=== PATIENT | female | born 1930 | race African-American/Black ===

== ENCOUNTER → 2016-03-17 | Outpatient (CLI) | payer OTHER ==
[~2016-03-17] MED LIST: AGGRENOX 25 MG1 EACH PO; AMOXICILLIN 50500 MG PO; ASPIR 8181 MG PO; ATORVASTATIN CA40 MG PO; CYMBALTA60 MG PO; JANUVIA100 MG PO; LASIX 20 MG TAB20 MG PO; LEVEMIR SUBQ; LOMOTIL TABLET1 EACH PO; PROBIOTIC1 EAC1 PO
== END ==
LOC: HYPER 07:12
DX: L89.610 Pressure ulcer of right heel, unstageable (principal); E78.5 Hyperlipidemia, unspecified; E11.22 Type 2 diabetes mellitus with diabetic chronic kidney disease; I12.9 Hypertensive chronic kidney disease with stage 1 through stage 4 chronic kidney disease, or unspecified chronic kidney disease; N18.9 Chronic kidney disease, unspecified; E11.21 Type 2 diabetes mellitus with diabetic nephropathy; Z79.84 Long term (current) use of oral hypoglycemic drugs; Z86.73 Personal history of transient ischemic attack (TIA), and cerebral infarction without residual deficits; Z90.710 Acquired absence of both cervix and uterus

== ENCOUNTER 2016-08-04 20:24 | Inpatient (IN) | payer OTHER ==
[~2016-08-04] VITALS: Ht 157.5 cm; Wt 53.2 kg
--- NOTE | ~2016-08-04 | HC ---
[facility] [place] [address] CONSULTATION Name: VICKICARLYN L Room #: 312-P [facility]#: [id number] Admission: 08/04/16 Attend Phys: Luciana Smith Discharge: 08/07/16 Date of : 30 Report #: [id number] THIS REPORT FOR: //name// CC: Luciana Smith Ashvin Wiseman DATE OF SERVICE: 08/05/2016 HISTORY OF PRESENT ILLNESS: This is an 85-year-old female patient who was admitted through the Emergency Department with a chief complaint of weakness. The patient is not able to provide a lot of information due to her level of alertness and ability to communicate. She was reported to have a pressure ulceration on her sacral region as well as an ulceration on her right ankle. I have been asked to see her with regard to wound care. PAST MEDICAL HISTORY: Positive for history of stroke with some residual aphasia. She has history of chronic kidney disease, diabetes mellitus, hypertension, and hypercholesterolemia. ALLERGIES: None. MEDICATIONS: Include aspirin, acidophilus, insulin, lisinopril, cholecalciferol, Tradjenta, Cymbalta, Lipitor, Lasix, and Plavix. FAMILY HISTORY: Positive for history of prostate cancer in her father and a history of tuberculosis in her mother. SOCIAL HISTORY: Negative for alcohol or tobacco use. REVIEW OF SYSTEMS: Negative other than per the history of present illness, significantly limited due to the patient's level of alertness. PHYSICAL EXAMINATION: VITAL SIGNS: Temperature 98.0, pulse , respiratory rate 18, blood pressure /87. GENERAL: This is a somewhat chronically ill-appearing female patient who appears to be well-nourished and in no apparent distress. HEENT: Head normocephalic. NECK: Supple. LUNGS: Diminished. HEART: Regular rhythm. ABDOMEN: Soft and nontender. SKIN AND BACK: Demonstrates what appears to be a small stage 3 sacral pressure ulcer to the left of the midline. There is a relatively clean base with granulation tissue, minimal if any undermining, no tunneling and it is not overtly infected. The area is slightly tender with some induration, but once [facility] [address] [place] [address] CONSULTATION Name: VICKICARLYN L Room #: 312-P [facility] IN [facility].#: [id number] Admission: 08/04/16 Attend Phys: Luciana Smith Discharge: 08/07/16 Date of : 30 Report #: [id number] again does not appear to be clinically infected. Examination of the right lateral ankle demonstrates previous ulceration with some dry skin. This area, however, is epithelialized. CLINICAL IMPRESSION: 1. Stage 3 pressure ulcer to the left sacral region. 2. Traumatic versus pressure ulceration to the right lateral ankle that is currently epithelialized. 3. Urinary tract infection. 4. Acute mental status changes. 5. Diabetes mellitus. 6. Previous history of cerebrovascular accident. RECOMMENDATIONS: At this point in time, the patient will need turning and repositioning every 2 hours to avoid continued pressure over bony prominences and pressure reduction along the sacral ulceration. At this point in time, we will recommend topical morphine, Silvadene compound mixed with a moisture barrier cream to improve adherence. No secondary dressings at this time. We will recommend protective boots while in bed. Continue to monitor for improvement and continue nutritional support. I appreciate being asked to see her in consultation. <ELECTRONICALLY SIGNED> By: Edmond Celis MD 08/07/16 2037 0923 [id number] Edmond Celis MD /nt
--- NOTE | ~2016-08-04 | EKG ---
[address] [place] [address] ELECTROCARDIOGRAM REPORT Name: CARLYN COHEN Room #: 312-P ADM IN M.R.#: [id number] Admission: 08/04/16 Attend Phys: Luciana Smith Discharge: Date of : 30 Report #: [id number] THIS REPORT FOR: //name// [facility] ED Test Date: 2016-08-04 Test Time: 22:20:22 Pat Name: CARLYN COHEN Department: Room: [facility] Gender: F Basket Weaver: ADONAY : 1930 Requested By: Sy Mcfadden Order Number: [id number] MD: Vern Spencer Measurements Intervals [place] Rate: 70 P: -72 MA: 170 QRS: -15 QRSD: 135 T: 164 QT: 448 QTc: 484 Interpretive Statements Sinus or ectopic atrial rhythm Left bundle branch block Baseline wander in lead(s) V4,V6 Compared to ECG 12/04/2014 20:15:33 Ectopic atrial rhythm now present Electronically Signed On 08-05-2016 8:54:07 CDT by Vern Spencer [email or web address] <ELECTRONICALLY SIGNED> By: Vern Spencer MD, FACC 08/05/16 0854 2220 Vern Spencer MD, [facility] /EPI
[2016-08-04 20:26] VITALS: BP 113/66
[2016-08-04] MEDS ORDERED: PLAVIX 75 MG TA75 M1 PO (20:47)
[2016-08-04 21:17] LABS: URINE BILIRUBIN NEGATIVE (Negative); URINE BLOOD 3+ (Negative); URINE COLOR YELLOW; URINE GLUCOSE-RANDOM* NEGATIVE (Negative); URINE KETONES NEGATIVE (Negative); URINE NITRITE NEGATIVE (Negative); URINE PROTEIN (DIPSTICK) 2+ (Negative); URINE UROBILINOGEN 0.2 E.U./dl (0.2-1.0)
[2016-08-04 21:27] LABS: SQUAMOUS 0-3 Few /LPF (0-3)
[2016-08-04 21:28] LABS: URINE RBC >20 Many /HPF (0-2); URINE WBC 6-15 Few /HPF (0-5)
[2016-08-04 21:29] LABS: BACTERIA >30 Many /HPF (None Seen); CASTS None Seen /LPF (None Seen); CRYSTALS None Seen /LPF (None Seen)
[2016-08-04 22:26] LABS: MCH 30.4 pg (26.0-34.0); MCHC 31.6 g/dL (28.0-37.0); MCV 96.1 fL (80.0-100.0); PLATELET COUNT 261 thou/uL (150-400); RBC 3.96 mil/uL (4.20-5.00); RDW 16.1 % (10.5-14.5)
[2016-08-04 22:31] LABS: MANUAL DIFF YES
[2016-08-04 22:38] LABS: CALCIUM 9.7 mg/dL (8.5-10.1); CREATININE 2.2 mg/dL (0.6-1.0); POTASSIUM 3.2 mmol/L (3.5-5.1)
[2016-08-04 22:42] LABS: TROPONIN-I 0.05 ng/mL (<0.04-0.07)
[2016-08-04 23:06] LABS: ABSOLUTE NEUTROPHILS 8.3 thou/uL (1.4-8.2); TOTAL CELL COUNT 100
[2016-08-04 23:07] LABS: ANISOCYTOSIS 1+
[2016-08-05 01:25] VITALS: BP 174/77
[2016-08-05] MEDS ORDERED: LISINOPRIL20 MG PO (03:43)
[2016-08-05] MEDS ORDERED: VITAMIN D1000 UNI1 PO (03:43)
[2016-08-05] MEDS ORDERED: TRADJENTA5 MG (03:44)
[2016-08-05 05:10] VITALS: BP 149/94
[2016-08-05 06:09] LABS: CALCIUM 9.3 mg/dL (8.5-10.1); POTASSIUM 3.5 mmol/L (3.5-5.1)
[2016-08-05 07:22] VITALS: BP 191/87
[2016-08-05 15:50] VITALS: BP 152/69
[2016-08-05 19:56] VITALS: BP 141/61
[2016-08-06 04:18] LABS: ALBUMIN 2.2 g/dL (3.4-5.0); CALCIUM 8.5 mg/dL (8.5-10.1); CREATININE 1.8 mg/dL (0.6-1.0); PHOSPHORUS 4.1 mg/dL (2.5-4.9)
[2016-08-06 04:22] VITALS: BP 145/66
[2016-08-06 04:29] LABS: POTASSIUM 2.5 mmol/L (3.5-5.1)
[2016-08-06 07:50] VITALS: BP 158/79
[2016-08-06 15:45] VITALS: BP 160/73
[2016-08-06 19:54] VITALS: BP 157/63
[2016-08-07 03:54] VITALS: BP 144/68
[2016-08-07 06:37] LABS: CALCIUM 8.5 mg/dL (8.5-10.1); CREATININE 1.4 mg/dL (0.6-1.0); POTASSIUM 3.6 mmol/L (3.5-5.1)
[2016-08-07 07:16] VITALS: BP 151/65
[2016-08-07] MEDS ORDERED: CEFDINIR300 MG PO (10:31)
[2016-08-07 16:29] VITALS: BP 158/57
== END 2016-08-07 16:59 | DRG 871 ==
LOC: ER 20:24 → 3N 22:58 → EROBS 22:58 → 3N 08-05 01:00
PROVIDERS: Hospitalist; Nurse Practitioner; Nurse Practitioner Acute Care
DX: A41.9 Sepsis, unspecified organism (principal); G92 Toxic encephalopathy; E43 Unspecified severe protein-calorie malnutrition; L89.153 Pressure ulcer of sacral region, stage 3; N17.9 Acute kidney failure, unspecified; N39.0 Urinary tract infection, site not specified; E87.0 Hyperosmolality and hypernatremia; E78.00 Pure hypercholesterolemia, unspecified; E87.6 Hypokalemia; E11.51 Type 2 diabetes mellitus with diabetic peripheral angiopathy without gangrene; E11.22 Type 2 diabetes mellitus with diabetic chronic kidney disease; N18.3 Chronic kidney disease, stage 3 (moderate); I12.9 Hypertensive chronic kidney disease with stage 1 through stage 4 chronic kidney disease, or unspecified chronic kidney disease; I69.920 Aphasia following unspecified cerebrovascular disease; Z90.49 Acquired absence of other specified parts of digestive tract; Z68.21 Body mass index [BMI] 21.0-21.9, adult; Z79.899 Other long term (current) drug therapy; Z79.82 Long term (current) use of aspirin; Z80.42 Family history of malignant neoplasm of prostate
CPT/HCPCS: 10795

== ENCOUNTER → 2016-09-22 | Outpatient (CLI) | payer OTHER ==
[~2016-09-22] MED LIST changes: +CEFDINIR300 MG PO; +LISINOPRIL20 MG PO; +PLAVIX 75 MG TA75 M1 PO; +TRADJENTA5 MG; +VITAMIN D1000 UNI1 PO
== END ==
LOC: HYPER 08-19 09:58
DX: L89.620 Pressure ulcer of left heel, unstageable (principal); E78.5 Hyperlipidemia, unspecified; E11.22 Type 2 diabetes mellitus with diabetic chronic kidney disease; I12.9 Hypertensive chronic kidney disease with stage 1 through stage 4 chronic kidney disease, or unspecified chronic kidney disease; N18.9 Chronic kidney disease, unspecified; Z90.710 Acquired absence of both cervix and uterus; Z79.84 Long term (current) use of oral hypoglycemic drugs; Z86.73 Personal history of transient ischemic attack (TIA), and cerebral infarction without residual deficits

== ENCOUNTER → 2016-09-29 | Outpatient (CLI) | payer OTHER | LOC: HYPER 07:00 | DX: E11.621 Type 2 diabetes mellitus with foot ulcer (principal); L97.421 Non-pressure chronic ulcer of left heel and midfoot limited to breakdown of skin; L89.620 Pressure ulcer of left heel, unstageable; S90.521D Blister (nonthermal), right ankle, subsequent encounter; E11.21 Type 2 diabetes mellitus with diabetic nephropathy; G81.91 Hemiplegia, unspecified affecting right dominant side; E78.5 Hyperlipidemia, unspecified; E11.22 Type 2 diabetes mellitus with diabetic chronic kidney disease; I12.9 Hypertensive chronic kidney disease with stage 1 through stage 4 chronic kidney disease, or unspecified chronic kidney disease; N18.9 Chronic kidney disease, unspecified; Z90.710 Acquired absence of both cervix and uterus; Z86.73 Personal history of transient ischemic attack (TIA), and cerebral infarction without residual deficits; Z79.84 Long term (current) use of oral hypoglycemic drugs; X58.XXXD Exposure to other specified factors, subsequent encounter ==

== ENCOUNTER → 2016-10-07 | Outpatient (CLI) | payer OTHER | LOC: HYPER 07:01 | DX: E11.621 Type 2 diabetes mellitus with foot ulcer (principal); L97.421 Non-pressure chronic ulcer of left heel and midfoot limited to breakdown of skin; L89.620 Pressure ulcer of left heel, unstageable; E11.21 Type 2 diabetes mellitus with diabetic nephropathy; I10 Essential (primary) hypertension; E78.5 Hyperlipidemia, unspecified; E11.22 Type 2 diabetes mellitus with diabetic chronic kidney disease; I12.9 Hypertensive chronic kidney disease with stage 1 through stage 4 chronic kidney disease, or unspecified chronic kidney disease; N18.9 Chronic kidney disease, unspecified; Z86.73 Personal history of transient ischemic attack (TIA), and cerebral infarction without residual deficits; Z79.84 Long term (current) use of oral hypoglycemic drugs; Z90.710 Acquired absence of both cervix and uterus ==

== ENCOUNTER 2016-11-28 22:42 | Inpatient (IN) | payer OTHER ==
[~2016-11-28] VITALS: Ht 157.5 cm; Wt 58.5 kg
[2016-11-28 22:43] VITALS: BP 138/63
[2016-11-28 23:28] LABS: URINE BILIRUBIN NEGATIVE (Negative); URINE BLOOD NEGATIVE (Negative); URINE COLOR YELLOW; URINE GLUCOSE-RANDOM* TRACE (Negative); URINE KETONES NEGATIVE (Negative); URINE NITRITE NEGATIVE (Negative); URINE PROTEIN (DIPSTICK) NEGATIVE (Negative); URINE SPECIFIC GRAVITY 1.015 (1.003-1.035); URINE UROBILINOGEN 0.2 E.U./dl (0.2-1.0)
[2016-11-29] MEDS ORDERED: NORVASC5 MG PO (00:43)
[2016-11-29] MEDS ORDERED: SENNA8.6 MG PO (00:44)
[2016-11-29] MEDS ORDERED: TYLENOL325 MG PO (00:44)
[2016-11-29 00:46] LABS: HEMATOCRIT 34.4 % (37.0-47.0); HEMOGLOBIN 11.3 gm/dL (12.0-15.0); MANUAL DIFF YES; MCH 29.9 pg (26.0-34.0); MCV 90.7 fL (80.0-100.0); PLATELET COUNT 321 thou/uL (150-400); RBC 3.79 mil/uL (4.20-5.00); WBC 7.9 thou/uL (4.0-11.0)
[2016-11-29 00:49] LABS: ANION GAP 6 mmol/L (7-16); BUN 18 mg/dL (7-18); CALCIUM 9.3 mg/dL (8.5-10.1); CHLORIDE 105 mmol/L (98-107); CO2 32 mmol/L (21-32); CREATININE 1.8 mg/dL (0.6-1.0); GLUCOSE 183 mg/dL (74-106); POTASSIUM 4.1 mmol/L (3.5-5.1); SODIUM 143 mmol/L (136-145)
[2016-11-29 00:57] LABS: ALKALINE PHOSPHATASE 158 U/L (46-116); SGOT 26 U/L (15-37); SGPT 31 U/L (30-65); TOTAL BILIRUBIN 0.6 mg/dL (<0.1-1.0); TOTAL PROTEIN 7.3 g/dL (6.4-8.2); TROPONIN-I < 0.04 ng/mL (<0.04-0.07)
[2016-11-29 01:29] LABS: ABSOLUTE NEUTROPHILS 4.3 thou/uL (1.4-8.2); ANISOCYTOSIS SLIGHT; TOTAL CELL COUNT 100
[2016-11-29 01:58] VITALS: BP 134/59
[2016-11-29 02:30] VITALS: BP 142/55
[2016-11-29 08:09] VITALS: BP 132/63
[2016-11-29 15:26] VITALS: BP 134/67
[2016-11-29 20:05] VITALS: BP 142/54
[2016-11-30 04:00] VITALS: BP 151/57
[2016-11-30 04:46] VITALS: BP 152/68
[2016-11-30 06:05] LABS: HEMATOCRIT 29.3 % (37.0-47.0); HEMOGLOBIN 9.9 gm/dL (12.0-15.0); MCH 30.8 pg (26.0-34.0); MCHC 33.7 g/dL (28.0-37.0); MCV 91.3 fL (80.0-100.0); RBC 3.21 mil/uL (4.20-5.00); RDW 15.6 % (10.5-14.5); WBC 9.5 thou/uL (4.0-11.0)
[2016-11-30 06:17] LABS: ALBUMIN 2.5 g/dL (3.4-5.0); CALCIUM 8.4 mg/dL (8.5-10.1); CREATININE 1.3 mg/dL (0.6-1.0); PHOSPHORUS 3.1 mg/dL (2.5-4.9); POTASSIUM 3.5 mmol/L (3.5-5.1)
[2016-11-30 07:30] VITALS: BP 152/71
== END 2016-11-30 17:51 | DRG 682 ==
LOC: ER 22:42 → EROBS 11-29 01:19 → 4S 11-29 01:59
PROVIDERS: Hospitalist; Nurse Practitioner Family
DX: N17.9 Acute kidney failure, unspecified (principal); G93.40 Encephalopathy, unspecified; N39.0 Urinary tract infection, site not specified; E11.22 Type 2 diabetes mellitus with diabetic chronic kidney disease; N18.3 Chronic kidney disease, stage 3 (moderate); I12.9 Hypertensive chronic kidney disease with stage 1 through stage 4 chronic kidney disease, or unspecified chronic kidney disease; E11.51 Type 2 diabetes mellitus with diabetic peripheral angiopathy without gangrene; F32.9 Major depressive disorder, single episode, unspecified; E78.5 Hyperlipidemia, unspecified; Z90.49 Acquired absence of other specified parts of digestive tract; Z90.710 Acquired absence of both cervix and uterus; Z79.82 Long term (current) use of aspirin; Z79.899 Other long term (current) drug therapy; Z80.42 Family history of malignant neoplasm of prostate; I69.320 Aphasia following cerebral infarction; Z28.21 Immunization not carried out because of patient refusal
CPT/HCPCS: 10195

== ENCOUNTER 2017-01-18 11:37 | Emergency (ER) | payer OTHER ==
[~2017-01-18] VITALS: Ht 165.1 cm; Wt 66.2 kg
[~2017-01-18 11:37] MED LIST changes: +NORVASC5 MG PO; +SENNA8.6 MG PO; +TYLENOL325 MG PO
== END 2017-01-18 14:31 | disposition home or self-care (01) ==
LOC: ER 11:37
DX: K56.41 Fecal impaction (principal); K59.00 Constipation, unspecified; F32.9 Major depressive disorder, single episode, unspecified; E11.9 Type 2 diabetes mellitus without complications; I12.9 Hypertensive chronic kidney disease with stage 1 through stage 4 chronic kidney disease, or unspecified chronic kidney disease; N18.3 Chronic kidney disease, stage 3 (moderate); Z90.49 Acquired absence of other specified parts of digestive tract; I73.9 Peripheral vascular disease, unspecified

== ENCOUNTER 2017-04-05 14:43 | Emergency (ER) | payer OTHER ==
[~2017-04-05] VITALS: Ht 160 cm; Wt 68.0 kg
--- NOTE | ~2017-04-05 | EKG ---
[place] [address] [facility] [place] [address] ELECTROCARDIOGRAM REPORT Name: VICKICARLYN Room #: [facility]#: [id number] Admission: 04/05/17 Attend Phys: Discharge: 04/05/17 Date of : 30 Report #: [id number] THIS REPORT FOR: //name// 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: ERIKA : 1930 Requested By: Tammy Fajardo Order Number: [id number] MD: Vern Spencer Measurements Intervals [place] Rate: 70 P: -18 [place]: 241 QRS: -27 QRSD: 132 T: 107 QT: 471 QTc: 509 Interpretive Statements Sinus rhythm Prolonged [place] interval Left bundle branch block Compared to ECG 08/04/2016 22:20:22 No significant change was found Electronically Signed On 04-06-2017 8:21:39 COMPUTER APPLICATION DEVELOPER by Vern Spencer [email or web address] <ELECTRONICALLY SIGNED> By: Vern Spencer MD, [facility] 04/06/17 08 11 11 Vern Spencer MD, [facility] /EPI
[2017-04-05 15:24] LABS: URINE BILIRUBIN NEGATIVE (Negative); URINE BLOOD 1+ (Negative); URINE COLOR YELLOW; URINE GLUCOSE-RANDOM* NEGATIVE (Negative); URINE KETONES NEGATIVE (Negative); URINE LEUKOCYTES 3+ (Negative); URINE NITRITE POSITIVE (Negative); URINE PROTEIN (DIPSTICK) NEGATIVE (Negative); URINE UROBILINOGEN 0.2 E.U./dl (0.2-1.0)
[2017-04-05 15:34] LABS: URINE CLARITY HAZY
[2017-04-05 15:35] LABS: BACTERIA >30 Many /HPF (None Seen); CASTS None Seen /LPF (None Seen); CRYSTALS None Seen /LPF (None Seen); SQUAMOUS 0-3 Few /LPF (0-3); URINE RBC 3-10 Few /HPF (0-2); URINE WBC >25 Many /HPF (0-5)
[2017-04-05 15:56] LABS: ABSOLUTE NEUTROPHILS 4.8 thou/uL (1.4-8.2); BASOPHILS 0.3 % (0.0-2.0); EOSINOPHILS 1.8 % (0.0-3.0); HEMATOCRIT 36.9 % (37.0-47.0); HEMOGLOBIN 11.8 gm/dL (12.0-15.0); LYMPHOCYTES 31.3 % (24.0-44.0); MCH 30.1 pg (26.0-34.0); MCHC 31.9 g/dL (28.0-37.0); MCV 94.3 fL (80.0-100.0); MONOCYTES 11.6 % (1.0-8.0); PLATELET COUNT 218 thou/uL (150-400); RBC 3.92 mil/uL (4.20-5.00); RDW 15.5 % (10.5-14.5); WBC 8.8 thou/uL (4.0-11.0)
[2017-04-05 16:03] LABS: CALCIUM 9.5 mg/dL (8.5-10.1); CREATININE 1.7 mg/dL (0.6-1.0)
[2017-04-05 16:09] LABS: TOTAL BILIRUBIN 0.3 mg/dL (<0.1-1.0); TOTAL PROTEIN 7.2 g/dL (6.4-8.2)
[2017-04-05] MEDS ORDERED: KEFLEX500 M1 PO (16:34)
[2017-04-05 17:17] VITALS: BP 147/57
== END 2017-04-05 17:26 | disposition home or self-care (01) ==
LOC: ER 14:43
PROVIDERS: Physician Assistant
DX: N39.0 Urinary tract infection, site not specified (principal); F32.9 Major depressive disorder, single episode, unspecified; I12.9 Hypertensive chronic kidney disease with stage 1 through stage 4 chronic kidney disease, or unspecified chronic kidney disease; E11.22 Type 2 diabetes mellitus with diabetic chronic kidney disease; N18.3 Chronic kidney disease, stage 3 (moderate); Z86.73 Personal history of transient ischemic attack (TIA), and cerebral infarction without residual deficits; Z90.49 Acquired absence of other specified parts of digestive tract

== ENCOUNTER → 2017-06-17 | Outpatient (CLI) | payer OTHER ==
[~2017-06-17] MED LIST changes: +KEFLEX500 M1 PO
== END ==
LOC: RAD 06:30 → SPEECH 06:30 → RAD 14:54
DX: R13.12 Dysphagia, oropharyngeal phase (principal); I10 Essential (primary) hypertension; E11.8 Type 2 diabetes mellitus with unspecified complications; I63.9 Cerebral infarction, unspecified; I73.9 Peripheral vascular disease, unspecified

== ENCOUNTER 2018-02-10 01:31 | Inpatient (IN) | payer OTHER ==
[~2018-02-10] VITALS: Ht 160 cm; Wt 61.8 kg
--- NOTE | ~2018-02-10 | D ---
[facility] [place] [address] DISCHARGE SUMMARY Name: CARLYN COHEN Lesli Room #: 205-P [facility] IN .R.#: [id number] Admission: 02/10/18 Attend Phys: Pedro El MD Discharge: 03/12/18 Date of : 30 Report #: [id number] THIS REPORT FOR: //name// CC: Horacio Keo [facility] Pedro Vidal MD DATE OF SERVICE: 03/12/2018 SUMMARY OF HISTORY AND PHYSICAL: The patient was brought to the Emergency Room for mental status changes, where she was found to be markedly dehydrated because of poor oral intake, but mostly because of profound diarrhea that persisted after tremendous amount of laxatives were used because of a fecal impaction. Her dehydration was severe enough to be classified as "acute renal failure with acute tubular necrosis". SUMMARY OF HOSPITAL COURSE: She was admitted and seen by the sales stock associate. Her creatinine was 7.8 on admission compared with a baseline this previous year of 1.7. The sales stock associate adjusted her IV fluids and followed her throughout the one-month hospital stay. Tremendous diarrhea at the beginning of her hospital stay complicated her electrolyte management because of potassium losses. At discharge, her creatinine was at baseline at 1.5. 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 She was seen by the Speech Therapy Department, who felt that she required honey-thickened liquids. She had not been drinking or eating well prior to coming to the hospital and struggled with honey-thickened liquids. She then refused to drink them. Finally, a PEG tube was placed in order to provide adequate nutrition. Her diarrhea persisted, having mucousy stools. C. diff was negative and extended flexible sigmoidoscopy with biopsies was performed because of the diarrhea and because of a foreign body located in the rectum that was revealed by CT scanning. All the mucosa from the distal ascending colon to the rectum was normal. The foreign body seen on the CT scan was not visualized during the flexible sigmoidoscopy. The study was essentially normal. The biopsies showed melanosis coli and no other abnormalities. Microscopic colitis was absent. The diarrhea waxed and waned, but was minimal at discharge. The forgien body was felt to be the retained tip of a fecal management system. It was removed and not present on follow up CT. On 02/25/2018, a PEG tube was placed. Mild patchy duodenitis and minimal mild erythema of the antrum of the stomach were noted. The esophagus appeared normal and a PEG tube was placed without complications. [address] [address] DISCHARGE SUMMARY Name: VICKICARLYN Room #: 205-P [facility] IN ..#: [id number] Admission: 02/10/18 Attend Phys: Pedro El MD Discharge: 03/12/18 Date of : 30 Report #: [id number] The PEG tube feeding seem to proceed well, with an absence of gastric retention, but the diarrhea resumed. She was found to have a sigmoid volvulus and on 03/02/2018, Dr. Blanchard decompressed the volvulus with flexible sigmoidoscopy. On 02/10/2018, a laparoscopic sigmoid colectomy stapled and end-to-end with the 29 mm EEA anastomosis was performed by Dr. Vidal on 03/05/2018. Postoperatively, she appeared obtunded with agonal rhythms, but rapidly recovered in the Intensive Care Unit and was transferred to the floor the following day. After that time, she resumed PEG tube feedings without problems. Prior to the placement of her PEG tube, she had a brief episode of atrial fibrillation. Cardiology consultation noted that she had returned spontaneously to normal sinus rhythm, and recommended against long-term anticoagulation. She did have toxic encephalopathy, in that she was more confused on admission. After several days of treatment, she was able to answer questions appropriately with nodding her head up and down for yes and turning her head right to left for no answers. Admitting albumin qualified for severe malnutrition. Hemoglobin was 10.4 on admission, and dropped to 8.6 with hydration the next day. Aaron was 7.2. She was given 1 unit of PRBSs in the kadie- sigmoidectomy period on 03-04-2018. She did receive a full course replacement iron with Venofer infusion. She was also given erythropoietin injections for anemia of chronic kidney disease. On 02/24/2018, an echocardiogram showed mild concentric left ventricular hypertrophy with an ejection fraction of 55% with mild diastolic dysfunction. There was trace mitral regurgitation, but no stenosis. Throughout the hospital stay, the patient was carefully turned every 2 hours. At the time of discharge, there were no decubitus skin injuries present in the heels, legs, back or other areas. DISCHARGE DIAGNOSES: 1. Severe dehydration from chronic diarrhea and very poor oral intake, replaced over one-month period of time with IV fluids and PEG tube feeding. 2. Acute renal failure with acute tubular necrosis, resolved. 3. Chronic kidney disease. 4. Iron-deficiency anemia. 5. Anemia of chronic kidney disease. 6. Oropharyngeal dysphagia together with her brain injury from her stroke, required placement of a PEG tube, which was well tolerated. 7. Osteoarthritis of the hands. [facility] [address] [place] [address] DISCHARGE SUMMARY Name: CARLYN COHEN Room #: 205-P [facility] IN [facility]#: [id number] Admission: 02/10/18 Attend Phys: Pedro El MD Discharge: 03/12/18 Date of : 30 Report #: [id number] 8. 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 9. Peripheral vascular disease with 2 stents in the left leg arterial circulation. 10. Mild chronic respiratory congestion. 11. Mild patchy duodenitis - see EGD-PEG report reviewed above. PLAN: The patient is being transferred to [facility] to remain of IV Zosyn and a Isabel catheter. Fentanyl IV for pain control. Surgical followup with Dr. Vidal in 2 weeks. Osmolite 1.5 at 45 mL an hour. D-5-W at 100 mL an hour to be converted into water flushes once arrived at [facility]. Keep the head of the bed elevated to reduce reflux and aspiration. Physical therapy to work towards pivot for transferring. IV iron was completely replaced while in the hospital. She may need resumption of her high blood pressure medications. Once well healed from her surgery, her aspirin and clopidogrel to treat the 2 stents in her left leg arteries could be restarted if appropriate. Consideration for PPI if constant tube feediing altered. OTHER DISCHARGE ORDERS: Lovenox 30 mg subcutaneous at bedtime daily. Procrit 10,000 units every Thursday at 09:00 a.m. Fentanyl 50 mcg IV push every 2 hours as needed for pain. Sliding scale insulin. Piperacillin-tazobactam 3.375 grams IV every 12 hours. Probiotic daily. D5 at 100 mL an hour. Atorvastatin 40 mg daily. Acetaminophen p.r.n. She is no longer taking duloxetine 60 mg daily, Lasix 20 mg daily, Levemir at bedtime, lisinopril 20 mg daily, Tradjenta 5 mg daily, amlodipine 5 mg daily, senna or potassium chloride. By: [id number] [id number] Adams Harmon MD /nt
[2018-02-10 01:32] VITALS: BP 110/48
[2018-02-10 02:08] LABS: HEMATOCRIT 38.5 % (37.0-47.0); HEMOGLOBIN 12.4 gm/dL (12.0-15.0); MCHC 32.1 g/dL (28.0-37.0); MCV 93.5 fL (80.0-100.0); PLATELET COUNT 210 thou/uL (150-400); RBC 4.12 mil/uL (4.20-5.00); RDW 16.3 % (10.5-14.5); WBC 10.1 thou/uL (4.0-11.0)
[2018-02-10 02:14] LABS: CALCIUM 9.4 mg/dL (8.5-10.1); CREATININE 7.8 mg/dL (0.6-1.0)
[2018-02-10 02:19] LABS: POTASSIUM 2.6 mmol/L (3.5-5.1)
[2018-02-10 02:20] LABS: ALBUMIN 2.5 g/dL (3.4-5.0); TOTAL BILIRUBIN 0.8 mg/dL (<0.1-1.0); TOTAL PROTEIN 6.9 g/dL (6.4-8.2)
[2018-02-10 02:21] LABS: URINE BILIRUBIN NEGATIVE (Negative); URINE BLOOD TRACE (Negative); URINE CLARITY CLOUDY; URINE COLOR YELLOW; URINE GLUCOSE-RANDOM* NEGATIVE (Negative); URINE KETONES NEGATIVE (Negative); URINE LEUKOCYTES-REFLEX 3+ (Negative); URINE NITRITE-REFLEX NEGATIVE (Negative); URINE PROTEIN (DIPSTICK) NEGATIVE (Negative); URINE SPECIFIC GRAVITY >= 1.030 (1.005-1.035); URINE UROBILINOGEN 0.2 E.U./dl (0.2-1.0)
[2018-02-10 02:25] LABS: ABSOLUTE NEUTROPHILS 7.6 thou/uL (1.4-8.2); BASOPHILS 0.2 % (0.0-2.0); EOSINOPHILS 0.4 % (0.0-3.0); LYMPHOCYTES 14.2 % (24.0-44.0); MONOCYTES 11.3 % (1.0-8.0); POLYS 73.9 % (36.0-66.0)
[2018-02-10 02:30] LABS: BACTERIA-REFLEX >30 Many /HPF (None Seen); CASTS None Seen /LPF (None Seen); MUCUS 4-6 Moderate strn/LPF (None Seen); SQUAMOUS 0-3 Few /LPF (0-3); TRANSITIONAL EPITHEL CELL 0-3 Few /LPF (None Seen); URINE RBC 3-10 Few /HPF (0-2); URINE WBC-REFLEX >25 Many /HPF (0-5)
[2018-02-10 02:31] LABS: AMORPHOUS URATES Few /LPF (None Seen); WBC CLUMPS Few (None Seen)
[2018-02-10 02:35] LABS: TROPONIN-I 0.24 ng/mL (<0.06)
[2018-02-10 02:48] LABS: ANISOCYTOSIS 1+; POLYCHROMASIA OCCASIONAL
[2018-02-10 02:49] LABS: BURR CELLS FEW
[2018-02-10 02:50] LABS: LARGE PLATELETS FEW
[2018-02-10 06:37] VITALS: BP 119/36
[2018-02-10 06:56] VITALS: BP 102/53
--- NOTE | 2018-02-10 08:21 | EKG ---
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 President Of Procurement: Trino ROSE : 1930 Requested By: Irving Calvert Order Number: [id number] MD: Ruel Webb Measurements Intervals [place] Rate: 72 P: DC: QRS: -12 QRSD: 149 T: 168 QT: 458 QTc: 502 Interpretive Statements Atrial fibrillation Left bundle branch block Compared to ECG 04/05/2017 15:12:15 Sinus rhythm no longer present First degree AV block no longer present Electronically Signed On 02-10-2018 8:21:07 BANANA LOADER by Ruel Webb [email or web address] <ELECTRONICALLY SIGNED> By: Ruel Webb MD 02/10/18 0821 0416 0416 Ruel Webb MD /CHELSEY
[2018-02-10] MEDS ORDERED: POTASSIUM20 PO (09:19)
[2018-02-10 10:12] LABS: ALBUMIN 2.3 g/dL (3.4-5.0); CREATININE 7.5 mg/dL (0.6-1.0); PHOSPHORUS 4.9 mg/dL (2.5-4.9); POTASSIUM 3.2 mmol/L (3.5-5.1)
--- NOTE | 2018-02-10 11:21 | HC ---
[facility] [address] [place] [address] CONSULTATION Name: CARLYN COHEN Room #: 359-P ADM IN ..#: [id number] Admission: 02/10/18 Attend Phys: Pedro El MD Discharge: Date of : 30 Report #: [id number] THIS REPORT FOR: //name// CC: Horacio Crowley Pedro El DATE OF SERVICE: 02/10/2018 ATTENDING PHYSICIAN: Pedro El MD REASON FOR CONSULTATION: Acute kidney injury. HISTORY OF PRESENT ILLNESS: This 87-year-old patient from the [facility] care facility has suffered for many years status post cerebrovascular accident with debility and weakness. She is wheelchair bound and has been pretty much aphasic. Recently, she has developed increased stools partly due to cathartics and has become poorly responsive with poor p.o. intake for several days. Laboratory data showed a creatinine of greater than 7 with abnormal electrolytes and she is admitted. PAST MEDICAL HISTORY: She had a stroke 15 years ago. She has had peripheral arterial disease with some stents to the vasculature of the left lower extremity. She has had previous left heel wound, previous hysterectomy, appendectomy, history of hypertension and diabetes mellitus. MEDICATIONS: List at the time of admission includes potassium, lisinopril 20 mg daily, furosemide 20 mg daily, insulin, Tradjenta 5 mg daily, Cymbalta 60 mg daily, Plavix 75 mg daily, atorvastatin 40 mg daily, aspirin 81 mg daily, amlodipine 5 mg daily. FAMILY HISTORY: Positive for prostate cancer in the father. No renal disease. SOCIAL HISTORY: At the extended care facility. No substantial cigarettes or alcohol. PHYSICAL EXAMINATION: GENERAL: This is a somewhat chronically ill-appearing patient who is able to squeeze my hands to command. SKIN: Otherwise, unremarkable. SKELETAL: Shows her to be well developed, well nourished. No wounds noted. HEENT: Extraocular movements are full. Vision appears to be intact. Hearing appears to be intact. Mucous membranes are dry. NECK: Veins are flat. CHEST: Clear to auscultation anterior in the supine position. HEART: Regular but distant. ABDOMEN: Slightly distended, soft, nontender. [facility] [address] [place] [address] CONSULTATION Name: CARLYN COHEN Room #: 359-P [facility] IN [facility]#: [id number] Admission: 02/10/18 Attend Phys: Pedro El MD Discharge: Date of : 30 Report #: [id number] EXTREMITIES: Show no edema. Peripheral pulses diminished and the feet are slightly cool. LABORATORY DATA: The creatinine is 7.8. Urinalysis is very concentrated and there is leukocyturia and bacteriuria suggesting urinary tract infection. Potassium is 2.6, sodium is 157, glucose 122. White count is 10.1, platelets 210. ASSESSMENT AND PLAN: Acute kidney injury. Volume depletion appears to be at work here. She is on multiple antihypertensives as well as diuretics. These will be held. Fluid, salt and potassium will need to be replenished. Isabel catheter placed. We will check urine studies. We will likely hold off for the time being on renal sonogram, but we may need to do that as well, and otherwise give her lots of fluids and see how she does. 1. Status post cerebrovascular accident. 2. History of hypertension. 3. Diabetes mellitus. 4. Peripheral arterial disease, status post stenting, left lower extremity. <ELECTRONICALLY SIGNED> By: Horacio Crowley MD 02/10/18 1121 1000 1045 Horacio Crowley MD /nt
[2018-02-10 11:25] VITALS: BP 126/46
--- NOTE | 2018-02-10 13:50 | NUR ---
ASSESSMENT: CM REVIEWED CHART AND MET WITH PATIENT AT THE BEDSIDE. PT IS A LTC RESIDENT AT [facility] WHO WAS ADMITTED DUE TO ABNORMAL LABS. PT USES A WALKER/WHEELCHAIR. CM CONTACTED LIASON AT [facility] TO UPDATE WELL FAXED OVER CLINICAL. CM ALSO RECHED OUT TO PATIENTS DAUGHTER MACY TO UPDATE. PLANS ARE FOR PATIENT TO RETURN BACK TO [facility] ONCE SHE IS MEDICALLY STABLE. CM WILL CONTINUE TO FOLLOW TO ASSIST NEEDED.
--- NOTE | 2018-02-10 14:23 | NUR ---
ASSUMED PATIENT CARE FROM ED. A&OX1. PATIENT ABLE TO SHAKE HEAD YES OR NO FOR SOME QUESTIONS. ALL EXTREMITIES WEAK, LEFT MORE THAN RIGHT. HX OF CVA. LIVES AT [facility]. DAUGHTER IN ROOM IN THE MORNING. DAUGHTER TO BRING DPOA PAPERWORK TOMORROW. BLOOD SUGAR LOW IN THE EARLY AFTERNOON, TREATED. PATIENT HAS HAD MULTIPLE CRITICAL LABS TODAY. DR. NEWBERRY AND LORAINE NOTIFIED. RENAL HANDLING IV FLUIDS. LABS TO BE REDRAWN IN THE MORNING.
[2018-02-10 16:51] VITALS: BP 101/40
[2018-02-10 17:53] LABS: URINE CREATININE-RANDOM* 138.2 mg/dL
[2018-02-10 19:45] VITALS: BP 111/43
[2018-02-11 00:22] VITALS: BP 114/51
[2018-02-11 05:56] LABS: MCH 29.8 pg (26.0-34.0); MCHC 31.4 g/dL (28.0-37.0); MCV 94.7 fL (80.0-100.0); RBC 3.48 mil/uL (4.20-5.00); RDW 17.2 % (10.5-14.5); WBC 8.7 thou/uL (4.0-11.0)
[2018-02-11 05:59] LABS: HEMOGLOBIN 10.4 gm/dL (12.0-15.0)
[2018-02-11 06:54] LABS: ALBUMIN 2.1 g/dL (3.4-5.0); CALCIUM 7.8 mg/dL (8.5-10.1); CREATININE 7.3 mg/dL (0.6-1.0); PHOSPHORUS 4.2 mg/dL (2.5-4.9)
[2018-02-11 06:58] LABS: POTASSIUM 2.5 mmol/L (3.5-5.1)
[2018-02-11 07:00] VITALS: BP 127/44
--- NOTE | 2018-02-11 07:53 | NUR ---
SLEPT MOST OF SHIFT. TURNED FOR COMFORT AND SKIN CARE. SPOKE WITH DR GANT LAST NOC AND D10W STARTED FOR BLOOD SUGARS. WORKING ON GOALS AND PLAN OF CARE FOR NOC. NOT PROGRESSING TOWARDS DISCHARGE GOALS. CONTINUE TO ASSES.
[2018-02-11 12:05] VITALS: BP 128/52
--- NOTE | 2018-02-11 13:12 | NUR ---
CONSULTED TO PLACE A PICC BY STAMP PAD MAKER. ORDER AND CONSENT NOTED. THE PATIENT WAS NOT RESPONDING TO TEACHING. THE RIGHT UPPER ARM BASILIC WAS WIDLEY PATENT. A #5F DOUBLE LUMEN POWER PICC WAS PLACED PER HOSPITAL POLICY AFTER A BEDSIDE TIMEOUT WAS COMPLETE. LINE TRIMMED TO 42CM AND ADVANCED WITHOUT DIFFICULTY. LINE CONFIRMED AT 3CM EXTERNAL USING 3CG. LINE SECURED AND RELEASED FOR USE
--- NOTE | 2018-02-11 13:34 | NUR ---
on-going assessment: CM FAXED UPDATED CLINICAL TO [facility]. PT IS NOT STABLE FOR DISCHARGE AT THIS TIME. CM WILL CONTINUE TO FOLLOW TO ASSIST NEEDED.
--- NOTE | 2018-02-11 13:46 | NUR ---
Assumed care of patient at 0700. Vitals have been stable. Patient is very drowsy, but does arouse easily. Seems to respond to name, opens eyes. Can follow very simple commands, squeeze hands, nods yes / no. Aphasic from previous CVA. Extremely weak. Critical labs this morning, called to Dr. Crowley. Fluids adjusted per physician. Request for PICC line placement. Consent obtained with daughter, MARK, and verified with 2 RNs. Successful double lumen PICC to right upper arm per IV team. ST eval today; patient able to take pureed, honey thickened liquids. Poor appetite. Isabel to DD with minimal urine output. FMS in place, draining liquid stool. C.diff sample still pending. Repositioning every couple hours to maintain skin integrity. Attempting to progress towards POC. Will continue to monitor.
[2018-02-11 16:21] VITALS: BP 120/57
[2018-02-11 19:50] VITALS: BP 119/50
[2018-02-12 04:59] VITALS: BP 127/53
[2018-02-12 06:23] LABS: ALBUMIN 1.8 g/dL (3.4-5.0); CALCIUM 7.6 mg/dL (8.5-10.1); CREATININE 6.8 mg/dL (0.6-1.0); PHOSPHORUS 3.7 mg/dL (2.5-4.9)
[2018-02-12 06:26] LABS: POTASSIUM 2.6 mmol/L (3.5-5.1)
--- NOTE | 2018-02-12 07:48 | NUR ---
SLEPT MOST OF SHIFT. REMAINS ORIENTED TO SELF. CANT REMEMBER WHERE SHE IS. MORE ALERT TONIGHT AND ASKING APPROPRIATE CARES. REQUESTED COVERS OFF AND TV. REMAINS WITH EXPRESSIVE APHASIA BUT DOES SAY SOME WORDS THAT CAN BE UNDERSTOOD. WORKING ON GOALS AND PLAN OF CARE FOR NOC. DENIES COMPLAINTS OF PAIN. CONTINUE TO ASSES.
[2018-02-12 08:00] VITALS: BP 124/52
[2018-02-12 11:55] VITALS: BP 133/62
[2018-02-12 15:55] VITALS: BP 135/69
--- NOTE | 2018-02-12 16:21 | NUR ---
ON-GOING ASSESSMENT: CM REVIEWED CHART AND SPOKE WITH ATTENDING. CM FAXED UPDATED CLINICAL TO [facility]. CM SPOKE WITH PATIENTS DAUGHTER AND PLANS ARE TO RETURN TO [facility] ONCE STABLE. PT STILL HAS ABNORMAL LABS. CM SPOKE WITH ATTENDING WHO STATES HE DOES NOT FEEL PATIENT WILL LIKELY BE STABLE FOR DISCHARGE UNTIL THURSDAY/THURSDAY NEXT WEEK. CM UPDATED OZIEL IN ADMISSIONS AT [facility]. CM WILL CONTINUE TO FOLLOW TO ASSIST NEEDED.
--- NOTE | 2018-02-12 18:10 | NUR ---
PT ALERT TO SELF, PT ABLE TO ANSWER YES OR NO TO SOME QUESTIONS WITH EXPRESSIVE APHASIS. VSS, 100%RA, DENIES PAIN. ARGUETA AND FMS TO DD. PT TOLERATES MEALS WITH ASSIST. ISOLATION DISCONTINUED. PT SLOWLY PROGRESSING TOWRADS POC GOLAS.
[2018-02-12 19:15] VITALS: BP 130/39
--- NOTE | 2018-02-12 23:29 | NUR ---
ASSUMED PT CARE AROUND 1900. ORIENTED TO SELF ONLY. DENIES ANY PAIN. Q2H TURN. FMS IN PLACE. VSS. AFBERILE. RESTING QUIETLY IN BED. FALL PRECAUTIONS IN PLACE. REPORT GIVEN TO ONCOMING NURSE AT 3805.
[2018-02-13 02:59] LABS: ALBUMIN 1.9 g/dL (3.4-5.0); CREATININE 6.8 mg/dL (0.6-1.0); POTASSIUM 3.3 mmol/L (3.5-5.1)
[2018-02-13 03:45] VITALS: BP 142/67
--- NOTE | 2018-02-13 04:28 | NUR ---
Assumed care of pt at 2300. Pt is alert and oriented to self. Q2h turn. Isabel catheter and fecal management system in place. Pureed, honey thick liquids. Pt is wheelchair bound. Double lumen PICC upper right arm. Pt is aphasic and hard to understand. Fall precautions in place. Will continue to monitor.
[2018-02-13 07:52] VITALS: BP 134/51
--- NOTE | 2018-02-13 10:01 | NUR ---
ASSUMED CARE AT 0700, SHIFT ASSESSMENT DONE, VSS. LOW GRADE TEMP NOTED, PRN TYLENOL GIVEN. APPETITE POOR THIS AM, FSBS WAS 177, INSULIN HELD THIS AM. DENIES PAIN, NAUSEA. FOELY AND FECAL MANAGEMENT SYSTEM IN PLACE. WILL CONTINUE TO ASSESS AND ASSSIT WITH ADLs NEEDED.
[2018-02-13 11:56] VITALS: BP 112/54
[2018-02-13 16:09] VITALS: BP 123/53
[2018-02-13 19:02] VITALS: BP 159/86
--- NOTE | 2018-02-14 02:54 | NUR ---
resting quietly tonight. assisted with turns q 2 hours. denies pain. continues on iv fluids. very sleepy, however she awakens and nods her head or answers yes/no approp. careplan reviewed. no family into visiti this shift.
[2018-02-14 03:30] VITALS: BP 128/39
[2018-02-14 06:43] LABS: ALBUMIN 1.8 g/dL (3.4-5.0); CREATININE 6.7 mg/dL (0.6-1.0); PHOSPHORUS 5.3 mg/dL (2.5-4.9); POTASSIUM 3.1 mmol/L (3.5-5.1)
[2018-02-14 07:18] VITALS: BP 148/55
[2018-02-14 12:31] VITALS: BP 148/56
[2018-02-14 16:00] VITALS: BP 107/67
--- NOTE | 2018-02-14 17:55 | NUR ---
MOSTLY APHASIC. STILL ABLE TO MAKE NEEDS KNOWN. TURNED Q2, REPOSITIONED FOR COMFORT. INCONTINENT OF ORANGE MARMALADE STOOL. K+ 3.1, BEING CORRECTED IVPB. PICC FLUSHES READILY. FREQUENT CHECKS; WILL CONTINUE TO MONITOR.
[2018-02-14 19:15] VITALS: BP 128/67
[2018-02-15 03:50] VITALS: BP 118/78
[2018-02-15 06:10] LABS: ALBUMIN 1.8 g/dL (3.4-5.0); CALCIUM 8.2 mg/dL (8.5-10.1); CREATININE 6.5 mg/dL (0.6-1.0); PHOSPHORUS 5.7 mg/dL (2.5-4.9); POTASSIUM 3.2 mmol/L (3.5-5.1)
--- NOTE | 2018-02-15 06:19 | NUR ---
SLEPT MOST OF SHIFT. TURNED EVERY 2-3 HOURS FOR COMFORT AND SKIN CARE. INCONTINENT OF JELLY LIKE STOOL PRN. WORKING ON GOALS AND PLAN OF CARE FOR NOC. MORE ALERT. ANSWERS YES NO QUESTIONS AND NURSE CAN UNDERSTAND SOME WORDS. REMAINS APHASIC. PROGRESSING SLOWLY TOWARDS REHAB. CONTINUE TO ASSES.
[2018-02-15 07:47] VITALS: BP 134/47
[2018-02-15 11:09] VITALS: BP 124/53
--- NOTE | 2018-02-15 15:19 | NUR ---
dp faxed updates to Kamari Nava/Corbin in admissions. DP will follow up with admissions to ensure delivery of updates.
[2018-02-15 16:42] VITALS: BP 138/49
--- NOTE | 2018-02-15 18:45 | NUR ---
PATIENT HAS SLEPT THROUGH THE DAY. SHE IS STILL SELDOM EATING ANY FOOD FROM BREAKFAST TO DINNER. DR NEWBERRY TO SEE PATIENT. STATES HE WILL MOST LIKELY PUT A PEG TUBE AFTER SHE RETURNS TO SKILLED FACILITY. SHE DENIES PAIN WHEN ASKED. RESPIRATIONS ARE NON LABORED. CONT TO REPLACE K AT THIS TIME. WILL CONT WITH PLAN OF CARE.
[2018-02-15 19:20] VITALS: BP 133/47
[2018-02-16 03:40] VITALS: BP 103/41
[2018-02-16 04:42] LABS: ALBUMIN 1.7 g/dL (3.4-5.0); CALCIUM 8.3 mg/dL (8.5-10.1); CREATININE 6.6 mg/dL (0.6-1.0); PHOSPHORUS 5.8 mg/dL (2.5-4.9)
--- NOTE | 2018-02-16 06:15 | NUR ---
DURING HOURLY ROUNDS, NOTICED PT HAD BOWEL MOVEMENT. NEONATAL NURSE AND NURSE CLEANED UP PT AND GAVE BED BATH. PT IS NON VERBAL AND GRUNTS. Q2 TURNS AND FOLLOWING POC WITH SODIUM BICARB INFUSING AT 80 ML/HR. PT ARGUETA IS PATENT. LABS WERE DRAWN ON PICC WITH GOOD RETURN. ON GOING ASSESSMENT.
[2018-02-16 07:41] VITALS: BP 130/56
[2018-02-16 11:15] VITALS: BP 125/41
--- NOTE | 2018-02-16 14:40 | NUR ---
ON-GOING ASSESSMENT: CM REVIEWED CHART. PTS CONCHE LOADER AND UNLOADER IS STILL ELEVATED AND IS 6.6 TODAY. PATIENT IS BEING CLOSELY MONITORED FOR INTAKE. CM FAXED UPDATED CLINICAL TO [facility] TO UPDATE THEM. CM ALSO CONTACTED PATIENTS DAUGHTER FACUNDO TO UPDATE. CM WILL CONTINUE TO FOLLOW TO ASSIST NEEDED.
[2018-02-16 16:36] VITALS: BP 136/62
[2018-02-16 19:20] VITALS: BP 150/66
[2018-02-17 04:05] VITALS: BP 134/55
[2018-02-17 05:03] LABS: HEMATOCRIT 25.9 % (37.0-47.0); HEMOGLOBIN 8.6 gm/dL (12.0-15.0); MCH 30.7 pg (26.0-34.0); MCHC 33.3 g/dL (28.0-37.0); MCV 92.5 fL (80.0-100.0); RBC 2.8 mil/uL (4.20-5.00); RDW 16.4 % (10.5-14.5); WBC 9.5 thou/uL (4.0-11.0)
[2018-02-17 05:14] LABS: ALBUMIN 1.6 g/dL (3.4-5.0); CALCIUM 7.8 mg/dL (8.5-10.1); CREATININE 6.2 mg/dL (0.6-1.0); PHOSPHORUS 4.9 mg/dL (2.5-4.9); POTASSIUM 3.2 mmol/L (3.5-5.1)
--- NOTE | 2018-02-17 06:32 | NUR ---
PT STILL HAVE MAJOR BOUTS OF DIARRHEA. OVER NIGHT PT HAD 3. COULD POSSIBLE USE ANOTHER CDIFF. SENT DOWN STOOL SAMPLE. HOURLY ROUNDING AND Q2 TURNS. PT VOCALIZES NOTHING EXCEPT GRUNTS.
[2018-02-17 07:20] VITALS: BP 135/56
[2018-02-17 11:23] VITALS: BP 139/58
[2018-02-17 15:18] VITALS: BP 148/75
--- NOTE | 2018-02-17 15:24 | NUR ---
dp faxed updates to [facility]. Dp will call to ensure delivery of updates.
--- NOTE | 2018-02-17 15:41 | NUR ---
PT IS PROGRESSING TOWARD POC GOALS. VSS, AFEBRILE. PT FOUND TO BE SLEEPING/RESTING FOR MOST THE OF THE SHIFT, NO APPARENT SIGNS OF PAIN OR DISCOMFORT. PT TURNED Q2 TOLERATED. PT CONTINUES TO HAVE LOOSE BRIGHT YELLOW MUCUS STOOLS THROUGHOUT SHIFT, ARGUETA TO DD. IVF INFUSING PER ORDERS. PT REQUIRES ASSISTANCE WITH MEALS. PT IS RESTING COMFORTABLY AT THIS TIME, FREQUENT MONITORING BY THIS RN, AND OTHER NURSING STAFF.
[2018-02-17 19:58] VITALS: BP 156/69
--- NOTE | 2018-02-18 02:43 | NUR ---
ASSUMED CARE OF PT AT 1900. ALERT, ANSWERED QUESTIONS OF HER COMFORT AND PERSONAL NEEDS. BP HAS BEEN ELEVATED W/ SBP IN 140-150's, MONITORING. 2 LOOSE STOOLS, CLEANED AND CHANGED PRN. TURNED PT WOULD ALLOW. CURRENTLY RESTING. NO ACUTE DISTRESS. PROGRESSING TOWARDS POC GOALS.
[2018-02-18 04:00] VITALS: BP 117/53
[2018-02-18 06:04] LABS: ALBUMIN 1.6 g/dL (3.4-5.0); CALCIUM 7.9 mg/dL (8.5-10.1); CREATININE 5.9 mg/dL (0.6-1.0); PHOSPHORUS 4.6 mg/dL (2.5-4.9); POTASSIUM 3.2 mmol/L (3.5-5.1)
[2018-02-18 07:34] VITALS: BP 128/54
[2018-02-18 11:35] VITALS: BP 141/69
--- NOTE | 2018-02-18 13:29 | NUR ---
Patient left for flex-sig at 1315.
--- NOTE | 2018-02-18 14:31 | NUR ---
Assumed care of patient at 0700. Vitals have been stable. Patient appears to be oriented to self, drowsy, but awakens easily. Nods yes/ no to questions and follows simple commands. 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 Remains NPO for flex-sig. Consent signed via telephone with daughter, DPOA and second RN. Completed this afternoon and tolerated well. No acute findings and no foreign body found. Some biopsies taken. To return to renal, pureed / honey thick diet. Incontinent bowel and bladder - 2 small BMs this shift, still loose. Barrier cream applied. Repositioned q 2 hours. Working with therapies. Slowly progressing towards POC. Will continue to monitor.
--- NOTE | 2018-02-18 14:42 | NUR ---
on-going assessment: PT HAD FLEX-SIG TODAY. CM FAXED UPDATED CLINICAL TO [facility] TO UPDATE. CM WILL CONTINUE TO FOLLOW TO ASSIST NEEDED.
[2018-02-18 15:59] VITALS: BP 125/57
--- NOTE | 2018-02-18 17:36 | P ---
[facility] [place] [address] [address] [place] [address] PROCEDURE REPORT Name: CARLYN COHEN Room #: 359-P ADM IN M.R.#: [id number] Admission: 02/10/18 Attend Phys: Pedro El MD Discharge: Date of : 30 Report #: [id number] THIS REPORT FOR: //name// CC: Horacio El MD DATE OF SERVICE: 02/18/2018 PROCEDURE: Extended flexible sigmoidoscopy with biopsies. A patient of Dr. Pedro El. INDICATION FOR PROCEDURE: Evaluate first of all a foreign body that we saw on CT scan in the rectum, which I think is probably a rectal catheter, and secondly obtain biopsies to evaluate for possible causes of chronic diarrhea. Informed consent for this procedure was obtained prior to the administration of any medication. The risks of the procedure, which include bleeding, perforation, infection, complications of sedation and the possibility I could miss something have been explained to the patient and she and her family has indicated her consent for us to proceed with a sigmoidoscopy. DESCRIPTION OF PROCEDURE: Digital rectal was performed and no abnormalities were palpated on digital rectal examination. The Olympus colonoscope was introduced through the anal sphincter and advanced under direct visualization to the distal ascending colon. Findings were noted on withdrawal of the scope. The distal ascending colonic mucosa appears normal. Biopsies were obtained x 2 for histopathology to evaluate for microscopic causes of diarrhea. The hepatic flexure appears normal. Transverse colon, normal mucosa. Splenic flexure, normal mucosa. Descending colon, normal mucosa. Sigmoid colon, normal mucosa. Rectum, normal mucosa. Retroflexed view did not reveal any further abnormalities. The scope was withdrawn. The patient went to the recovery area in stable condition. She tolerated the procedure well. IMPRESSION: Normal flexible sigmoidoscopy to the distal ascending colon. No foreign body was seen throughout this visualized colon. RECOMMENDATION: To await the biopsy results. [facility] [address] [place] [address] PROCEDURE REPORT Name: CARLYN COHEN Lesli Room #: 359-P [facility]#: [id number] Admission: 02/10/18 Attend Phys: Pedro El MD Discharge: Date of : 30 Report #: [id number] Thank you very much once again for allowing me to participate in her care, Dr. El. <ELECTRONICALLY SIGNED> By: Chela Ward DO 02/18/18 1736 1431 1442 Chela Ward DO /nt
[2018-02-18 19:19] VITALS: BP 138/65
[2018-02-19 04:28] VITALS: BP 131/61
--- NOTE | 2018-02-19 06:30 | NUR ---
ASSUMED CARE OF PT AT 1900. ALERT, ANSWERS SIMPLE QUESTIONS. MORE DROWSY THIS SHIFT, OPENED EYES TO CALLING HER NAME AND ASKING HER QUESTIONS, SLEEPING MOST THE NIGHT. NO DIARRHEA OR BM'S THIS SHIFT. FLUIDS INFUSING ORDERED. NO UOP UNTIL 0500 WHEN SHE WAS INCONTINENT OF LARGE AMOUNT OF URINE. CLEANED AND CHANGED, SKIN INTACT AND BARRIER CREAM APPLIED. NO ACUTE DISTRESS. PROGRESSING TOWARDS POC GOALS.
[2018-02-19 07:17] VITALS: BP 147/51
[2018-02-19 07:25] LABS: ALBUMIN 1.7 g/dL (3.4-5.0); CALCIUM 7.9 mg/dL (8.5-10.1); CREATININE 5.5 mg/dL (0.6-1.0); PHOSPHORUS 4.6 mg/dL (2.5-4.9); POTASSIUM 3.4 mmol/L (3.5-5.1)
[2018-02-19 11:15] VITALS: BP 150/64
--- NOTE | 2018-02-19 11:56 | NUR ---
ON-GOING ASSESSMENT: CM REVIEWED CHART AND SPOKE WITH ATTENDING. PTS CREATININE IS STILL ELEVATED AND CONTINUING TO MONITOR HER ORAL INTAKE. CM SPOKE WITH ATTENDING AND NO PLAN FOR WEEKEND DISCHARGE. CM CONTACTED [facility] DUBOSE TO UPDATE AND ALSO FAXED UPDATED CLINICAL. CM ALSO SPOKE WITH PATIENTS DAUGHTER MACY TO UPDATE. CM WILL CONTINUE TO FOLLOW TO ASSIST NEEDED.
--- NOTE | 2018-02-19 14:43 | NUR ---
Assumed care of patient at 0700. Vitals have been stable. Patient drowsy this morning, but more alert this afternoon. Still overall drowsy, but easily arouses. Appears oriented to self. Can follow simple commands, nods yes/no. Incontinent of urine, external female catheter placed and working well. Adequate urine output. Repositioning every couple hours to maintain skin integrity. Bath this shift. Calorie count - patient with poor appetite and requires feeding. Still on pureed, honey thick diet and remains aspiration risk. Sitting up for meals. Attempting to progress towards POC. Will continue to monitor.
[2018-02-19 14:59] VITALS: BP 140/67
[2018-02-19 19:05] VITALS: BP 151/69
[2018-02-20 03:33] VITALS: BP 138/60
--- NOTE | 2018-02-20 04:53 | NUR ---
ASSUMED CARE AT 1900, ASSESSMENT COMPLETED. PT DENIED PAIN, NAUSEA, OR SOB. Q2 TURNS FOR WOUND PREVENTION. EXTERNAL FEMALE CATHETER BECAME LOOSE AND PT HAD A SMALL LIQUID BM, REQUIRING THE CATHETER TO BE CHANGED. PT TOOK ONE HS MED CRUSHED IN HONEY LIQUIDS, ONLY TOOK ABOUT 3 SPOONFULS OF LIQUID AND REFUSED ANY MORE. FLUIDS INFUSING VIA PICC. NO OTHER CONCERNS, WILL CONTINUE TO MONITOR.
[2018-02-20 05:12] LABS: ALBUMIN 1.8 g/dL (3.4-5.0); CALCIUM 8.2 mg/dL (8.5-10.1); CREATININE 5.2 mg/dL (0.6-1.0); PHOSPHORUS 4.6 mg/dL (2.5-4.9); POTASSIUM 3.5 mmol/L (3.5-5.1)
[2018-02-20 08:20] VITALS: BP 152/71
[2018-02-20 12:13] VITALS: BP 147/54
[2018-02-20 16:18] VITALS: BP 173/58
--- NOTE | 2018-02-20 17:59 | NUR ---
Assumed care of patient at 0700. Vital signs have remained stable. Patient arouses easily, slept off and on throughout shift. Appears oriented to self. Patient is able to follow simple commands with nods of yes/no. Denies any complaints of pain when asked. Patient turned and repositioned every 2 hours to maintain skin integrity. External female catheter in place and patent (1000cc+ output) - patient incontinent of urine. Calorie count maintained and patient remains on pureed, honey thick diet, place in 90 degrees upright position for meals to reduce risk of aspiration. No acute distress noted, will continue to monitor. Attempting to progress towards plan of care.
[2018-02-20 18:55] VITALS: BP 135/67
[2018-02-21 04:04] VITALS: BP 133/60
[2018-02-21 06:01] LABS: ALBUMIN 1.7 g/dL (3.4-5.0); CREATININE 4.7 mg/dL (0.6-1.0); PHOSPHORUS 4.3 mg/dL (2.5-4.9)
[2018-02-21 06:09] LABS: POTASSIUM 2.9 mmol/L (3.5-5.1)
[2018-02-21 07:13] VITALS: BP 125/54
--- NOTE | 2018-02-21 07:35 | NUR ---
able to take med last night crushed in pudding. thickened liquids given using spoon. slow to swallow but no difficulty, s/s of aspiration. critical potassium called to dr forrest, instructed to call dr parra (dr sandhu periodontal assistant). turned q2hrs. denies pain.
[2018-02-21 11:10] VITALS: BP 142/67
[2018-02-21 15:24] VITALS: BP 161/61
--- NOTE | 2018-02-21 17:42 | NUR ---
PATIENT DROWSY AROUSABLE. DOES NOT WANT EATTING AND DRAINKING ANYTTHING. DENIES PAIN. Q2H TURN. ONE LOOSE STOOL. NOT TOWARDS POC GOALS.
--- NOTE | 2018-02-21 18:06 | NUR ---
ASSUMED PATIENT CARE AT 0700. A/O X4. TOLERATED ON 5L/NC. LOW URINE OUT PUT. POOR APPETITE. AFEBRILE, VSS. SOLWLY TOWARDS POC GOALS.
[2018-02-21 20:27] VITALS: BP 145/75
[2018-02-22 05:16] LABS: ALBUMIN 1.7 g/dL (3.4-5.0); CALCIUM 7.7 mg/dL (8.5-10.1); CREATININE 4.4 mg/dL (0.6-1.0); PHOSPHORUS 4.1 mg/dL (2.5-4.9)
[2018-02-22 05:33] LABS: HEMOGLOBIN 7.9 gm/dL (12.0-15.0); MCH 30.9 pg (26.0-34.0); MCHC 33.1 g/dL (28.0-37.0); MCV 93.2 fL (80.0-100.0); RBC 2.57 mil/uL (4.20-5.00); RDW 16.7 % (10.5-14.5); WBC 7.4 thou/uL (4.0-11.0)
[2018-02-22 05:39] VITALS: BP 135/42
[2018-02-22 05:39] LABS: POTASSIUM 2.8 mmol/L (3.5-5.1)
[2018-02-22 08:04] VITALS: BP 147/65
--- NOTE | 2018-02-22 11:07 | PATH ---
[facility] [address] [place] [address] PATHOLOGY RPT PROCEDURE Name: VICKICARLYN Room #: 359-P ADM IN M.R.#: [id number] Admission: 02/10/18 Date of : 30 Discharge: Report #: [id number] Path Case #: [id number] [facility] Accession Number: [id number] . 01 Material submitted: . RANDOM RIGHT COLON BIOPSIES R/O MICROSCOPIC COLITIS . 01 Clinical history: . Pre-OP DX: Abnormal CT, chronic diarrhea Post-OP DX: Normal extended flexible sigmoidscopy to ascending colon . 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 - There is no evidence of acute cryptitis, granulomas or adenomatous changes of microscopic colitis or malignancy. (SHA:marcela; 02/19/2018) MAYCOL/02/19/2018 . 02 Electronically signed: . Michel Hernandez MD, Pathologist NPI- [id number] . 01 Gross description: . Received in formalin labeled "C[place], random right colon biopsies, rule out microscopic colitis," are 2 segments of farfan soft tissue measuring 1.0 x 0.2 x 0.2 cm in aggregate dimensions and ranging from 0.3 to 0.7 cm in maximum dimension. The specimen is submitted entirely in cassette A1. (TSD; 02/18/2018) TOB/TOB . 02 Pathologist provided ICD-10: K63.89 . 02 CPT . 618759 Specimen Comment: A courtesy copy of this report has been sent to Specimen Comment: [phone], . Specimen Comment: Report sent to / DR ENWBERRY Specimen Comment: A duplicate report has been generated due to demographic updates. Performed at: [address] [id number] MD Yasir Greenfield MD Phone: [phone] Performed at: 02 [facility] [address] [place] [address] PATHOLOGY RPT PROCEDURE Name: CARLYN LINDA Lesli Room #: 359-P [facility] IN M.R.#: [id number] Admission: 02/10/18 Date of : 30 Discharge: Report #: [id number] Path Case #: [id number] [address] [place] [id number] MD Carlota Haynes MD Phone: [phone]
[2018-02-22 11:36] VITALS: BP 102/45
--- NOTE | 2018-02-22 11:46 | NUR ---
ALNIE reviewed chart and spoke with nursing. Pt to have calorie count. Pt will need an EGD with possible peg tube placement per GI. LANIE left voice message for Xenia at [facility] to provide update. Plan is for pt to return to [facility] when medically stable. LANIE is following to assist as needed with discharge planning. [facility]--
--- NOTE | 2018-02-22 16:06 | NUR ---
Assumed care of patient at 0700. Vitals have been stable. Patient remains drowsy, but does arouse. Dr. El trying new medication to increase alertness and appetite. Appears oriented - nods yes / no appropriately. Denies pain. Continued with extremely poor appetite. Only takes a few bites and then will not eat anymore. Remains extremeley high aspiration risk, as well. Sitting up 90 degrees when feeding and allow extra time, as patient requires multiple swallows. Spoke with GI today; plan for Peg - possibly tomorrow? If not tomorrow, then Peg Thursday. Electrolytes replaced per renal orders. Repositioning q 2 hours to maintain skin integrity. External female catheter in place with adequate urine output. Not yet progressing towards POC. Will continue to monitor.
[2018-02-22 16:41] VITALS: BP 139/62
[2018-02-22 17:46] LABS: BE(vivo) -5.9 mmol/L (-2 to +3); HCO3 18.4 mmol/L (22.0-26.0); PCO2 32.1 mmHg (35.0-45.0); PO2 85.4 mmHg (80.0-100.0); pH 7.377 (7.360-7.450); sO2 96.4 % (92.0-98.0)
[2018-02-22 19:50] VITALS: BP 123/65
--- NOTE | 2018-02-23 04:11 | NUR ---
ASSUMED PT CARE AROUND 1900. APHASIC. ABLE TO FOLLOW SIMPLE COMMANDS. ALERT AND TRIES TO COMMUNICATE WHEN AWAKE. Q2H TURN TO PREVENT SKIN BREAKDOWN. ORAL CARE PROVIDED. NPO AFTER MIDNIGHT. EXTERNAL FEMALE CATHETER IN PLACE WITH GOOD URINE OUTPUT. PT SLEPT MOST OF THE NIGHT. RESP EVEN AND UNLABORED. PROGRESSING SLOWLY TOWARD POC GOALS. WILL CONTINUE TO MONITOR FURTHER.
[2018-02-23 04:20] VITALS: BP 119/62
[2018-02-23 05:50] LABS: % SATURATION 30 % (20-39); ALBUMIN 1.9 g/dL (3.4-5.0); CALCIUM 8.2 mg/dL (8.5-10.1); CREATININE 4.1 mg/dL (0.6-1.0); IRON 35 ug/dL (50-170); MAGNESIUM 2.1 mg/dL (1.8-2.4); PHOSPHORUS 4.3 mg/dL (2.5-4.9); POTASSIUM 3.1 mmol/L (3.5-5.1); TIBC 118 ug/dL (250-450)
[2018-02-23 06:52] LABS: FOLIC ACID 8.4 ng/mL (8.6-58.9)
[2018-02-23 07:15] VITALS: BP 132/59
[2018-02-23 09:41] LABS: HEMATOCRIT 27.8 % (37.0-47.0); MCH 30.6 pg (26.0-34.0); MCHC 32.5 g/dL (28.0-37.0); MCV 94.2 fL (80.0-100.0); RBC 2.95 mil/uL (4.20-5.00); WBC 7.2 thou/uL (4.0-11.0)
[2018-02-23 11:15] VITALS: BP 123/44
[2018-02-23 15:27] VITALS: BP 141/48
--- NOTE | 2018-02-23 16:21 | NUR ---
Assumed care of Pt at 0700. Pt AOX2 in no acute distress, able to make simple conversation. incontinent. sinus on telemetry. vitals stable. small appetite. NPO for gastric tube placement tomorrow, per GI. pt progressing toward poc goals.
[2018-02-23 19:04] VITALS: BP 141/57
[2018-02-24 03:32] VITALS: BP 102/69
--- NOTE | 2018-02-24 04:11 | NUR ---
Pt. has been repositioned for comfort. Denies any pain. Tolerating room air well. She remains aphasic from previous stroke. Kept NPO for procedure today. Incont of bm. Has external female cath with periods of incontinence. Afebrile. Making progress towards care plan goals.
[2018-02-24 04:57] LABS: ALBUMIN 1.7 g/dL (3.4-5.0); CALCIUM 7.9 mg/dL (8.5-10.1); CREATININE 3.7 mg/dL (0.6-1.0); PHOSPHORUS 3.9 mg/dL (2.5-4.9)
[2018-02-24 04:59] LABS: POTASSIUM 2.8 mmol/L (3.5-5.1)
[2018-02-24 07:52] VITALS: BP 13/53; BP 130/53
--- NOTE | 2018-02-24 08:25 | NUR ---
Noted placement of PEG tube. Will recommend jevity 1.5 to start 25ml/hr and progress slow to goal of 45ml/hr since pt at risk for refeeding syndrome due to poor oral intake >2 weeks. Defer any water flushes/fluid needs to physician.
--- NOTE | 2018-02-24 13:05 | NUR ---
DP FAXED REFERRAL TO [facility] Norman will call to ensure delivery of referral.
[2018-02-24 14:26] VITALS: BP 124/54
--- NOTE | 2018-02-24 15:37 | 2DMMODE ---
[facility] [address] [place] [address] 2 D/M-MODE ECHOCARDIOGRAM Name: CARLYN COHEN Room #: 359-P ADM IN .R.#: [id number] Admission: 02/10/18 Attend Phys: Pedro El MD Discharge: Date of : 30 Date of Service: 02/24/18 1537 Report #: [id number] THIS REPORT FOR: //name// APPROVED REPORT Study performed: 02/24/2018 14:24:26 EXAM: Comprehensive 2D, Doppler, and color-flow Echocardiogram Patient Location: Bedside Room #: 359 Status: routine BSA: 1.87 HR: 53 bpm BP: 130/53 mmHg Rhythm: Abnormal Other Information Study Quality: Adequate Technically limited study due to no patient cooperation, heavy snoring and lung artifact. Indications Atrial Fibrillation Hx: CVA, HTN, DM, PAD. 2D Dimensions RVDd: 29.85 mm IVSd: 11.95 (7-11mm) LVOT Diam: 20.05 (18-24mm) LVDd: 41.54 mm PWd: 12.25 (7-11mm) Ascending Ao: 30.79 (22-36mm) LVDs: 31.11 (25-40mm) Aortic Root: 31.69 mm Volumes Left Atrial Volume (Systole) Single Plane 4CH: 25.80 mL Single Plane 2CH: 48.36 mL LA ESV Index: 22.00 mL/m2 Aortic Valve AoV Peak Alessio.: 1.47 m/s AO Peak Gr.: 8.59 mmHg LVOT Max P.07 mmHg LVOT Max V: 0.88 m/s CHIVO Vmax: 1.89 cm2 Mitral Valve [facility] [address] [place] [address] 2 D/M-MODE ECHOCARDIOGRAM Name: VICKICARLYN Lesli Room #: 359-P [facility]#: [id number] Admission: 02/10/18 Attend Phys: Pedro El MD Discharge: Date of : 30 Date of Service: 02/24/18 1537 Report #: [id number] E/A Ratio: 0.5 MV Decel. Time: 389.61 ms MV E Max Alessio.: 0.55 m/s MV A Alessio.: 1.05 m/s MV PHT: 112.99 ms IVRT: 121.11 ms Pulmonary Valve PV Peak Alessio.: 1.09 m/s PV Peak Gr.: 4.71 mmHg Tricuspid Valve TR Peak Alessio.: 2.62 m/s TR Peak Gr.: 27.48 mmHg Left Ventricle The left ventricle is normal size. Paradoxical septal motion consistent with conduction abnormality. Mild concentric left ventricular hypertrophy. The left ventricular systolic function is normal. LVEF is 55%. Mild diastolic dysfunction is present (impaired relaxation pattern). Right Ventricle The right ventricle is normal size. The right ventricular systolic function is normal. Atria The left atrium size is normal. The right atrium size is normal. Aortic Valve The Aortic valve is mildly sclerotic. Trace to mild aortic regurgitation. There is no aortic valvular stenosis. Mitral Valve The mitral valve is thickened but opens well. Trace mitral regurgitation. Tricuspid Valve The tricuspid valve is normal in structure. Mild tricuspid regurgitation. Estimated PAP is 27mmHg plus the right atrial pressure. Pulmonic Valve The pulmonary valve is normal in structure. There is no pulmonic valvular regurgitation. [facility] [address] [place] [address] 2 D/M-MODE ECHOCARDIOGRAM Name: CARLYN COHEN Lesli Room #: 359-P ADM IN .R.#: [id number] Admission: 02/10/18 Attend Phys: Pedro El MD Discharge: Date of : 30 Date of Service: 02/24/18 1537 Report #: [id number] Great Vessels The aortic root is normal in size. The ascending aorta is normal in size. IVC is not well visualized. Pericardium There is no pericardial effusion. <Conclusion> The left ventricle is normal size. Mild concentric left ventricular hypertrophy. The left ventricular systolic function is normal. Mild diastolic dysfunction is present (impaired relaxation pattern). The right ventricle is normal size. The left atrium size is normal. The Aortic valve is mildly sclerotic. Trace to mild aortic regurgitation. Trace mitral regurgitation. Mild tricuspid regurgitation. Estimated PAP is 27mmHg plus the right atrial pressure. <ELECTRONICALLY SIGNED> By: Ruel Webb MD 02/24/18 [phone] [id number] Ruel Webb MD /INF
--- NOTE | 2018-02-24 17:25 | NUR ---
Assumed care of Pt at 0700. Pt drowsy today, sleeping for most of shift. arousable. pg tube placement post poned until tomorrow, if cleared by cardiology. cardiology eval ongoing. pt ate very little today. denies any concerns. potassium replaced this AM - repeat WNL. maintenance fluids modified by neph for added potassium. incontinent. external cath in place. sinus on telemetry.
[2018-02-24 18:14] VITALS: BP 140/93
[2018-02-24 20:47] VITALS: BP 130/50
--- NOTE | 2018-02-25 04:00 | NUR ---
Pt. has slept well most of the night in between cares. She has been repositioned for comfort. Tolerating room air well with no respiratory distress. Drowsy at beginning of shift but easily arousable. Kept NPO for possible peg placement today. Refused oral care initially but agreed later on. Incont. of loose bm and also incontinent of bladder. External female cath in place with 400 ml out plus the incontinence.Will continue to monitor.
[2018-02-25 04:53] VITALS: BP 130/57
[2018-02-25 04:59] LABS: ALBUMIN 1.8 g/dL (3.4-5.0); CALCIUM 8.3 mg/dL (8.5-10.1); CREATININE 3.5 mg/dL (0.6-1.0); MAGNESIUM 1.9 mg/dL (1.8-2.4); PHOSPHORUS 3.8 mg/dL (2.5-4.9); POTASSIUM 3.2 mmol/L (3.5-5.1)
[2018-02-25 09:54] LABS: HEMOGLOBIN 7.9 gm/dL (12.0-15.0); MCH 30.4 pg (26.0-34.0); MCHC 31.8 g/dL (28.0-37.0); MCV 95.5 fL (80.0-100.0); RBC 2.62 mil/uL (4.20-5.00); RDW 17.3 % (10.5-14.5)
--- NOTE | 2018-02-25 11:32 | NUR ---
PT IS PROGRESSING TOWARD POC GOALS. IVF INFUSING. Q2 TURN. PT TRANSPORTED OFF OF UNIT AT EGD ASSISTED PEG TUBE PLACEMENT.
--- NOTE | 2018-02-25 13:42 | NUR ---
ON-GOING ASSESSMENT: PT IS TO HAVE PEG TUBE PLACED TODAY. CM FAXED UPDATED CLINICAL TO [facility]. CM ALSO CONTACTED PATIENTS DAUGHTER MACY TO UPDATE. CM WILL CONTINUE TO FOLLOW TO ASSIST NEEDED.
[2018-02-25 14:30] VITALS: BP 128/53
[2018-02-25 16:22] VITALS: BP 122/52
[2018-02-25 19:35] VITALS: BP 139/59
[2018-02-26 04:25] VITALS: BP 127/55
--- NOTE | 2018-02-26 05:02 | NUR ---
Pt. slept well in between cares. She has been repositioned for comfort. Denies any pain or discomfort. Peg tube with dressing dry and intact , clamped at this time. Bowel sound present. No bm this shift. Bed alarm and SCD's on. Making progress towards care plan goals.
[2018-02-26 06:30] LABS: ALBUMIN 1.8 g/dL (3.4-5.0); CALCIUM 8.1 mg/dL (8.5-10.1); CREATININE 3.4 mg/dL (0.6-1.0); PHOSPHORUS 3.9 mg/dL (2.5-4.9); POTASSIUM 3.3 mmol/L (3.5-5.1)
[2018-02-26 07:38] VITALS: BP 146/56
[2018-02-26 11:34] VITALS: BP 142/41
--- NOTE | 2018-02-26 12:20 | NUR ---
ASSESSMENT: CM REVIEWED CHART AND SPOKE WITH ATTENDING. PLANS ARE FOR PATIENT TO START TUBE FEEDS TODAY. PER ATTENDING TENTATIVE PLAN FOR POSSIBLE DISCHARGE ON THURSDAY BACK TO [facility]. CM CONTACTED [facility] AND LEFT A VM WITH OZIEL IN ADMISSIONS. CM ALSO FAXED UPDATED CLINICAL INCLUDING RECOMMENDATIONS FOR TUBE FEEDS OVER TO [facility]. CM ALSO CONTACTED PATIENTS DAUGHTER/DPOA MACY TO UPDATE. CM WILL CONTINUE TO FOLLOW TO ASSIST NEEDED.
--- NOTE | 2018-02-26 15:11 | EKG ---
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: Izzy SWARTZ : 1930 Requested By: Sherly Ibarra Order Number: [id number] MD: Sean Cohen Measurements Intervals Lewis Rate: 74 P: 44 MI: 254 QRS: -27 QRSD: 138 T: 137 QT: 432 QTc: 480 Interpretive Statements Sinus rhythm Prolonged MI interval Left bundle branch block Compared to ECG 02/10/2018 04:16:45 First degree AV block now present Atrial fibrillation no longer present Electronically Signed On 02-26-2018 15:10:58 CORING MACHINE OPERATOR by Sean Cohen [email or web address] <ELECTRONICALLY SIGNED> By: Sean Cohen MD 02/26/18 1510 1514 1514 Sean Cohen MD /EPI
--- NOTE | 2018-02-26 15:41 | NUR ---
PT IS PROGRESSING TOWARD POC GOALS, VSS. TUBE FEED INITIATED ON PATIENT TODAY. PT IS TOLERATED TUBE FEED WELL AT THIS TIME, AND WORKING TOWARD A GOAL OF 40ML/HR. RENAL PUREE/HONEY THICK DIET RESUMED PER GI. OFFERED PT ASSISTANCE DURING MEALS, BUT PO CONSUMPTION REMAINS MINIMAL. IVF INFUSING. PT IS TURNED Q2 TOLERATED, AND HAS NO C/O OF PAIN OR DISCOMFORT. PT SAT ON SIDE OF BED WITH PHYSICAL THERAPY BUT COULD NOT TOLERATE MUCH ACTIVITY THIS SHIFT. PT IS RESTING COMFORTABLY AT THIS TIME, FREQUENT CHECKS BY THIS RN, WILL CONTINUE TO MONITOR THROUGHOUT SHIFT.
[2018-02-26 16:04] VITALS: BP 104/31
[2018-02-26 19:21] VITALS: BP 131/51
[2018-02-27 04:34] VITALS: BP 120/62
--- NOTE | 2018-02-27 05:52 | NUR ---
ASSUMED PT CARE AROUND 1900. APHASIC. PT SLEPT MOST OF THE NIGHT BUT WAS EASILY ARROUSABLE AND WOULD NOD HEAD YES/NO TO QUESTIONS. RESP EVEN AND UNLABORED. Q2H TURN TO PREVENT SKIN BREAKDOWN. BLE ELEVATED ON PILLOWS. ORAL CARE PROVIDED. TF VIA PEG. NO RESIDUALS THIS SHIFT. TOLERATING WELL. FALL PRECUATIONS IN PLACE. PROGRESSING SLOWLY TOWARD POC GOALS. WILL CONTINUE TO MONITOR FURTHTER.
[2018-02-27 06:37] LABS: ALBUMIN 1.7 g/dL (3.4-5.0); CALCIUM 8.2 mg/dL (8.5-10.1); CREATININE 3.2 mg/dL (0.6-1.0); MAGNESIUM 1.4 mg/dL (1.8-2.4); POTASSIUM 4.3 mmol/L (3.5-5.1)
[2018-02-27 07:27] VITALS: BP 133/55
[2018-02-27 11:31] VITALS: BP 131/53
[2018-02-27 16:41] VITALS: BP 116/40
--- NOTE | 2018-02-27 18:15 | NUR ---
Assumed care of Pt at 0700. Pt oriented to self. sleepy, arousable. voicing no concerns. minimal appetite. tube feeding infusing at goal rate w/o significant residuals. turned Q2H and PRN. sinus on telemetry. slow progress toward poc goals.
[2018-02-27 19:47] VITALS: BP 144/63
[2018-02-28] VITALS (7 sets, daily range): BP systolic 115–141; BP diastolic 44–66
--- NOTE | 2018-02-28 03:31 | NUR ---
ASSUMED PT CARE AROUND 1900. APHASIC. FOLLOWS SIMPLE COMMANDS. C/O ABDOMINAL DISCOMFORT AND NAUSEA AT BEGINNING OF SHIFT. NAUSEA RESOLVED WITH MEDICATION. PAIN MEDICATION GIVEN FOR ABDOMINAL PAIN. PT HAD 2 LOOSE STOOLS THIS SHIFT. TF VIA PEG. MINIMAL RESIDUALS NOTED. ORAL CARE PROVIDED. Q2H TURN TO PREVENT SKIN BREAKDOWN. FALL PRECAUTIONS IN PLACE. PROGRESSING SLOWLY TOWARD POC GOALS. WILL CONTINUE TO MONITOR FURTHER.
[2018-02-28 06:45] LABS: ALBUMIN 1.8 g/dL (3.4-5.0); CALCIUM 8.3 mg/dL (8.5-10.1); CREATININE 2.9 mg/dL (0.6-1.0); PHOSPHORUS 3.3 mg/dL (2.5-4.9); POTASSIUM 3.6 mmol/L (3.5-5.1)
--- NOTE | 2018-02-28 16:12 | NUR ---
Assumed care of patient at 0700. Vitals have been stable. Patient is alert, appears oriented. Follows simple commands and nods yes / no appropriately. Attempts to verbally communicate at times, but with aphasia from previous CVA. Tube feeding infusing at goal rate - very minimal residuals. Patient did complain of nausea this morning - was denying any abdominal pain. Zofran administered with good relief. Patient has denied nausea and pain throughout the rest of shift. Patient continues on pureed, honey thick diet but does not have appetite. External female catheter in place. Repositioning every couple hours to maintain skin integrity - heels floated with pillows. Electrolytes continue to slowly improve. Slowly progressing towards POC. Will continue to monitor.
--- NOTE | 2018-03-01 03:23 | NUR ---
ASSUMED PT CARE AROUND 1900. NO CHANGE IN NEURO STATUS. STILL C/O INTERMITTENT ABDOMINAL PAIN AND NAUSEA. SHAKES HEAD NO WHEN ASKED IF SHE WANTS ANY PAIN OR NAUSEA MEDICATIONS. PT HAS HAD 2-3 LOOSE, JELLY-LIKE CLEAR AND YELLOW/BROWN STOOLS THIS SHIFT. NOTIFIED DR YANCEY WHEN HE WAS ON THE UNIT. PER DR ORDER, CDIFF SAMPLE SENT TO LAB AND TF TURNED OFF DURING THE NIGHT. WILL RE-START TF IN THE AM, PER ORDER. PT HAS BEEN SLEEPING MOST OF THE NIGHT. RESP EVEN AND UNLABORED. REPOSITIONED TO PREVENT SKIN BREAKDOWN. PROGRESSING SLOWLY TOWARD POC GOALS. WILL CONTINUE TO MONITOR FURTHER.
[2018-03-01 04:20] VITALS: BP 114/50
--- NOTE | 2018-03-01 07:24 | NUR ---
UNABLE TO FLUSH BOTH LUMENS OF PICC LINE THIS AM. INITIATED ADMINISTRATION OF CATHFLO ACTIVASE IN BOTH LUMENS. UPDATED ONCOMING NURSE.
[2018-03-01 08:13] VITALS: BP 150/66
[2018-03-01 11:24] VITALS: BP 133/33
[2018-03-01 11:46] LABS: ALBUMIN 1.7 g/dL (3.4-5.0); CALCIUM 8.3 mg/dL (8.5-10.1); CREATININE 2.8 mg/dL (0.6-1.0); MAGNESIUM 2.2 mg/dL (1.8-2.4); PHOSPHORUS 3.7 mg/dL (2.5-4.9); POTASSIUM 3.1 mmol/L (3.5-5.1)
--- NOTE | 2018-03-01 13:04 | NUR ---
ON-GOING ASSESSMENT: CM REVIEWED CHART. PATIENT IS BEING TESTED FOR C-DIFF. ONCE MEDICALLY STABLE [facility], LATER [facility] CAN ACCEPT PATIENT BACK AT DISCHARGE, PER OZIEL AT [facility]. ONCE DISCHARGE ORDERS HAVE BEEN WRITTEN CONTACT SANDY DUBOSE FOR REPORT:[phone] AND FAX DISCHARGE ORDERS TO [facility] FAX [phone]. ARRANGE TRANSPORTATION THROUGH EXPRESS:[phone] AND [facility] NOTIFY FAMILY. SEND PATIENT WITH CHART COPY.
--- NOTE | 2018-03-01 13:48 | NUR ---
Left message for Emil Rahman regarding change in tube feeding formula due to diarrhea. Recommend Vital AF 1.2 to reach goal 50ml/hr.
[2018-03-01 16:12] VITALS: BP 121/56
--- NOTE | 2018-03-01 17:07 | NUR ---
Assumed care of Pt at 0700. Pt arousable, but sleeping for most of shift. eating several bites with meals. pt denies pain or nausea. loose clear yellow mucousy stools. cdif results negative. tube feeding infusing at goal rate. no residuals. sinus on telemetry. pt progresing toward poc goals.
[2018-03-01 19:40] VITALS: BP 121/47
[2018-03-02 04:00] VITALS: BP 121/48
[2018-03-02 04:25] LABS: HEMATOCRIT 21.8 % (37.0-47.0); HEMOGLOBIN 7.2 gm/dL (12.0-15.0); MCH 31.2 pg (26.0-34.0); MCHC 33.1 g/dL (28.0-37.0); MCV 94.1 fL (80.0-100.0); RBC 2.32 mil/uL (4.20-5.00); WBC 8.1 thou/uL (4.0-11.0)
--- NOTE | 2018-03-02 04:25 | NUR ---
Pt. stated she slept fair during the night. Repositioned for comfort. Tylenol given for peg tube site soreness. Pt. encouraged not to pull on it , small amount of SS dge around peg site. Cleaned and applied new dressing. Tolerating tube feeding with no gastric residual. No c/o nausea just soreness around peg site. External female cath intact , incont. of bladder x1 and also incont of bm x1 this shift. Bed alarm on. Will continue to monitor.
[2018-03-02 04:59] LABS: ALBUMIN 1.6 g/dL (3.4-5.0); CREATININE 2.6 mg/dL (0.6-1.0); PHOSPHORUS 3.2 mg/dL (2.5-4.9)
[2018-03-02 05:06] LABS: POTASSIUM 2.9 mmol/L (3.5-5.1)
--- NOTE | 2018-03-02 06:18 | NUR ---
Critical K level called to Dr. Harmon and order received.
[2018-03-02 07:58] VITALS: BP 106/48
[2018-03-02 11:44] VITALS: BP 127/63
[2018-03-02 16:23] VITALS: BP 123/51
--- NOTE | 2018-03-02 18:09 | NUR ---
ASSUMED PATIENT CARE AT 0700. ALERT TO SELF. KUB AND ABD CT SHOW SIGMOID VOLVNLUS. TF STOPED AT 1100. PATIENT WENT TO GI LAB HAD COLON DECOMPRESSION. RECTAL TUBE INSERT BY DR URIOSTEGUI. NPO NOW. K+ 3.9 AFTER REPLACEMENT.NOT TOWARDS POC GOALS.
[2018-03-02 19:50] VITALS: BP 131/57
[2018-03-03 05:17] VITALS: BP 128/55
[2018-03-03 06:12] LABS: HEMATOCRIT 23.5 % (37.0-47.0); HEMOGLOBIN 7.5 gm/dL (12.0-15.0); MCH 30.5 pg (26.0-34.0); MCHC 31.7 g/dL (28.0-37.0); RBC 2.45 mil/uL (4.20-5.00); RDW 16.9 % (10.5-14.5); WBC 8.9 thou/uL (4.0-11.0)
[2018-03-03 06:29] LABS: ALBUMIN 1.8 g/dL (3.4-5.0); CALCIUM 8.2 mg/dL (8.5-10.1); CREATININE 2.2 mg/dL (0.6-1.0); MAGNESIUM 1.8 mg/dL (1.8-2.4); PHOSPHORUS 2.7 mg/dL (2.5-4.9); POTASSIUM 3.6 mmol/L (3.5-5.1)
--- NOTE | 2018-03-03 06:35 | NUR ---
SLEPT MOST OF SHIFT. TURNED EVERY 2-3 HOURS FOR COMFORT AND SKIN CARE. MAINTAIN SAFE ENVIRONMENT. WORKING ON GOALS AND PLAN OF CARE FOR NOC. REMAINS NPO FOR POSSIBLE SURG. NOT PROGRESSING TOWARDS DISCHARGE GOALS AT THIS TIME. CONTINUE TO ASSES FREQUENTLY.
[2018-03-03 08:30] VITALS: BP 152/69
[2018-03-03 12:26] VITALS: BP 87/48
--- NOTE | 2018-03-03 13:42 | NUR ---
ON-GOING ASSESSMENT: CM REVIEWED CHART. PT HAS SIGMOID VOLVULUS AND IS CURRENTLY NPO AND SURGERY IS ON BOARD. PT HAS IN RECTAL TUBE. CM SPOKE WITH SANDY DUBOSE TO UPDATE PATIENT IS NOT MEDICAL STABLE AT THIS TIME FOR DISCHARGE. CM WILL CONTINUE TO FOLLOW TO ASSIST NEEDED.
--- NOTE | 2018-03-03 15:00 | NUR ---
WOUND CONSULT; ASSESSMENT OF BILATERAL HEELS. THE RIGHT HEEL HS NO S/S OF AN ACUTE INJURY OR PROSSESS. THE LEFT HEEL HAS DISCOLORATION SUSPICIOUS OF A DTI. BOTH HEELS HAVE INTACT SKIN. RECOMMENDATION; OFFLOAD WITH OFFLOADING BOOTS OR PILLOWS. DISCUSSED WITH GHADA
--- NOTE | 2018-03-03 16:27 | NUR ---
PT IS PROGRESSING SLOWLY TOWARD POC GOALS. PT REMAINS NPO WITH TF HELD UNTIL CARE PLAN MEETING TAKES PLACE TO DETERMINE PLAN OF CARE. IVF INFUSING. PT IS INC OF B/B. RECTAL DECOMPRESSION TUBE REMAINS IN PLACE WITH OCCASIONAL LEAKAGE OF STOOL AROUND TUBE, GI AWARE. PT IS TURNED Q2, AND HEELS ELEVATED OFF OF BED TO PREVENT BREAKDOWN. PRAFO BOOTS ORDERED. PT IS RESTING COMFORTABLY, FREQUENT CHECKS BY THIS RN.
[2018-03-03 17:05] VITALS: BP 159/68
[2018-03-03 20:15] VITALS: BP 138/54
--- NOTE | 2018-03-04 02:57 | NUR ---
Pt. slept most of the night. Repositioned for comfort. Denies any pain. Kept NPO per order. Incontinent of bm x1 this shift. Rectal tube in place for decompression. External female cath in place. Will continue to monitor.
[2018-03-04 04:32] VITALS: BP 145/59
[2018-03-04 05:53] LABS: ALBUMIN 1.7 g/dL (3.4-5.0); CALCIUM 7.9 mg/dL (8.5-10.1); CREATININE 1.9 mg/dL (0.6-1.0); MAGNESIUM 1.5 mg/dL (1.8-2.4); PHOSPHORUS 2.4 mg/dL (2.5-4.9); POTASSIUM 3.3 mmol/L (3.5-5.1)
[2018-03-04 07:45] VITALS: BP 145/60
[2018-03-04 11:16] VITALS: BP 132/54
--- NOTE | 2018-03-04 16:10 | NUR ---
ON-GOING ASSESSMENT: CM REVIEWED CHART. PT IS GETTING TRANSFUSED ONE UNIT. PLANS ARE FOR PATIENT TO HAVE SURGERY TOMORROW. CM UPDATED SANDY DUBOSE. CM WILL CONTINUE TO FOLLOW TO ASSIST NEEDED.
[2018-03-04 16:15] VITALS: BP 143/58
[2018-03-04 16:59] LABS: PROTIME 9.9 Seconds (9.3-11.4)
[2018-03-04 17:01] LABS: MAGNESIUM 2.9 mg/dL (1.8-2.4); POTASSIUM 4.2 mmol/L (3.5-5.1)
--- NOTE | 2018-03-04 18:25 | NUR ---
PATIENT WILL BE HAVING SURGERY DONE IN THE AM. SHE IS NON RESPONSIVE TO INPUT. SHE MAY OPEN HER EYES OR MOVE HER HANDS. SHE CONT TO HAVE DIARRHEA THROUGH THE DAY AND HAS BEEN KEPT CLEAN AND DRY. K AND MG REPLACED. AWAITING RESULTS. WILL PEG TUBE IN PLACE AND FLUSHES WITHOUT DIFFICULTY. WILL CONT WITH PLAN OF CARE.
[2018-03-04 19:20] VITALS: BP 149/60
[2018-03-04 21:55] VITALS: BP 141/69; BP 147/79
[2018-03-05] VITALS (14 sets, daily range): BP systolic 131–172; BP diastolic 58–74
--- NOTE | 2018-03-05 04:18 | NUR ---
pt presents with a flat affect,alert and oriented x 1,speech pressured due to history o cva, received one unit of red blood cells this shift,denies pain,pt is npo for sigmoid colectomy this am,several liquid stools after administration of mag citrate,pt is incontinent of boweland bladder. IVF continues. peg tube clamped.needs two people assist with adls,on ra.
[2018-03-05 05:27] LABS: HEMATOCRIT 30.6 % (37.0-47.0); MCH 30.4 pg (26.0-34.0); MCV 95.2 fL (80.0-100.0); RBC 3.21 mil/uL (4.20-5.00); RDW 19.3 % (10.5-14.5); WBC 8.5 thou/uL (4.0-11.0)
[2018-03-05 05:31] LABS: HEMOGLOBIN 9.8 gm/dL (12.0-15.0)
[2018-03-05 05:41] LABS: ALBUMIN 1.9 g/dL (3.4-5.0); CALCIUM 8.5 mg/dL (8.5-10.1); CREATININE 1.7 mg/dL (0.6-1.0); PHOSPHORUS 2.6 mg/dL (2.5-4.9); POTASSIUM 4.5 mmol/L (3.5-5.1)
--- NOTE | 2018-03-05 08:12 | NUR ---
Pt TO SURGERY TODAY. WILL HOLD AND AWAIT ORDERS TO RESUME POST-OPERATIVELY
--- NOTE | 2018-03-05 13:31 | NUR ---
on-going assessment: CM REVIEWED CHART. PT HAD SIGMOID COLECTOMY TODAY. CM UPDATED ADMISSIONS DEPT ISIS AT [facility] AND ALSO FAXED UPDATED CLINICAL TO [facility]. CM SPOKE WITH PATIENTS DAUGHTER MACY TO UPDATE. CM WILL CONTINUE TO FOLLOW TO ASSIST NEEDED.
--- NOTE | 2018-03-05 14:28 | NUR ---
PATIENT JUST BACK FROM SURGERY. SHE IS HAVING AGONAL RESPIRATIONS BUT OXYGEN SAT IS 100%. DR NEWBERRY PAGEFortino. BP IS NOTED TO BE HIGH. NO ORDERS NOTED FOR FEEDING AT THIS TIME. SHE IS UNREPONSIVE TO TOUCH OR SOUND. SHE DOES NOT SEEM TO BE IN PAIN.
[2018-03-05 15:15] LABS: BE(vivo) -17.9 mmol/L (-2 to +3); HCO3 10.1 mmol/L (22.0-26.0); PCO2 31.8 mmHg (35.0-45.0); PO2 85.8 mmHg (80.0-100.0); sO2 93.2 % (92.0-98.0)
[2018-03-05 15:18] LABS: pH 7.121 (7.360-7.450)
--- NOTE | 2018-03-05 15:44 | NUR ---
DR NEWBERRY CALED BACK AND NEW ORDERS TO SEND PATIENT TO ICU. PATIENT REMAINS COLD WITH TEMP OF 93.2. WARM BLANKETS APPLIED. PUPILS DILATED AND FIXED AT THIS TIME. PATIENT IS STILL NOT RESPONDING TO TOUHCH OR VOICE. BLOOD GASES RESULTS NOTED AND COMMUNICATED TO DR NEWBERRY.
[2018-03-05 16:56] LABS: HEMATOCRIT 33.2 % (37.0-47.0); HEMOGLOBIN 10.6 gm/dL (12.0-15.0); MCH 30.5 pg (26.0-34.0); MCHC 31.9 g/dL (28.0-37.0); MCV 95.8 fL (80.0-100.0); RBC 3.46 mil/uL (4.20-5.00); RDW 20.5 % (10.5-14.5); WBC 10.9 thou/uL (4.0-11.0)
[2018-03-05 17:06] LABS: CALCIUM 8.1 mg/dL (8.5-10.1); CREATININE 2.2 mg/dL (0.6-1.0); POTASSIUM 4.5 mmol/L (3.5-5.1)
[2018-03-05 17:12] LABS: ALBUMIN 2.1 g/dL (3.4-5.0); TOTAL BILIRUBIN 0.2 mg/dL (<0.1-1.0); TOTAL PROTEIN 6.3 g/dL (6.4-8.2)
--- NOTE | 2018-03-05 17:28 | NUR ---
Patient into room 241 from 3W following colectomy earlier today. Patient is slow to arouse, but opening eyes and follows very simple commands. Not verbalizing anything, but has baseline aphasia. Daughter at bedside. Dr. Sienna duarte, notified of ABGs, new orders for labs. Renal notified also, new fluid orders. BP is elevated, renal aware. Isabel in place, adequate output. Lap sites x3, and transverse abd incision covered with skin glue, otherwise GIANCARLO. Continue to monitor.
--- NOTE | 2018-03-05 17:40 | O ---
[facility] [place] [address] OPERATIVE REPORT Name: VICKICARLYN Lesli Room #: 241-P ADM IN M.R.#: [id number] Admission: 02/10/18 Attend Phys: Pedro El MD Discharge: Date of : 30 Report #: [id number] THIS REPORT FOR: //name// CC: Horacio El DATE OF SERVICE: 03/05/2018 SURGEON: Everardo Vidal MD CHILD STUDY TEAM DIRECTOR: Jake Hartman DO. PREOPERATIVE DIAGNOSES: 1. Sigmoid volvulus. 2. History of stroke with resultant aphasia. 3. Stage III chronic kidney disease. 4. Peripheral artery disease. 5. Diabetes mellitus. 6. Hypertension. 7. Depression. POSTOPERATIVE DIAGNOSES: 1. Sigmoid volvulus. 2. History of stroke with resultant aphasia. 3. Stage III chronic kidney disease. 4. Peripheral artery disease. 5. Diabetes mellitus. 6. Hypertension. 7. Depression. PROCEDURE: Laparoscopic sigmoid colectomy with stapled end-to-end 29 mm EEA anastomosis. ANESTHESIA: General endotracheal anesthesia and local anesthetic. ESTIMATED BLOOD LOSS: 10 mL. SPECIMEN: Sigmoid colon. COMPLICATIONS: None appreciated. INDICATIONS FOR PROCEDURE: This is an 87-year-old female patient from [facility] who has had worsened renal function as a result of poor oral intake and use of cathartics. The patient was admitted to [facility] with an elevated creatinine and abnormal electrolytes. Over the course of her stay, the patient developed malnutrition and inability to take in enough [facility] [address] [place] [address] OPERATIVE REPORT Name: VICKICARLYN L Room #: 241-P ADM IN .R.#: [id number] Admission: 02/10/18 Attend Phys: Pedro El MD Discharge: Date of : 30 Report #: [id number] by mouth, causing failure to thrive. The patient underwent an EGD with PEG placement by Dr. Chela Ward on 02/25/2018. Since that time, the patient has had worsened abdominal distention and difficulty with diarrhea. Imaging revealed a dilated viscus with a 14 cm diameter. This was felt to represent either a dilated stomach or dilated colon. The patient underwent a CT of the abdomen and pelvis showing changes consistent with a sigmoid volvulus. The patient then underwent a flexible sigmoidoscopy with passage of the scope to the transverse colon. A rectal tube was placed for decompression. This was consistent with a sigmoid volvulus. The patient has undergone a bowel prep and presents today for laparoscopic sigmoid colectomy as there is a high risk for recurrence of the sigmoid volvulus. She has no evidence for sepsis at this time. OPERATIVE FINDINGS: Upon entrance into the abdominal cavity, there was a large, dilated, redundant sigmoid colon, consistent with the patient's disease process. At the rectosigmoid junction, colon was quite dilated. Ultimately, nearly the entire sigmoid colon was resected. The 29 mm EEA stapled anastomosis was tension free. The leak test was negative, whereby fluid was used to fill the pelvis and air was passed transrectally and no air bubbles were seen emanating through the fluid. The anastomotic rings were complete both proximally and distally. At the conclusion of the operation, sponge, needle, and instrument counts were correct. DESCRIPTION OF PROCEDURE IN DETAIL: After risks, benefits, and expectations of the operation were discussed in detail with the patient's durable power of deputy commonwealth's attorney and the patient, informed consent was obtained. The patient was identified in the preoperative holding area. She was given IV antibiotics as documented in the chart in line with SCIP metrics. She was also given a bowel prep yesterday including both mechanical and antibiotic component. The patient was taken to the operating room and she was placed in the supine position. SCDs were placed on the patient's bilateral lower extremities and pneumatic compression was initiated. The patient was given IV sedation and she was intubated without incident. She was placed in the low lying dorsal lithotomy position in [facility]. The rectal tube was removed. The Isabel catheter was left in place. The abdomen was prepped and draped in the standard sterile fashion. The patient's PEG tube was prepped into the field. A time-out was performed to identify the correct patient and procedure. Local anesthetic was infiltrated into the skin and subcutaneous tissue in the right subcostal area where a small transverse incision was made. A 5 mm visual entry port was placed intraperitoneally with a 0-degree angled laparoscope. Pneumoperitoneum was achieved with insufflation of carbon dioxide to 15 mmHg. A 30-degree angled laparoscope was then inserted. A left upper quadrant 5-mm port was placed under direct visualization after local anesthetic was infiltrated into the skin and subcutaneous tissue and an appropriately sized incision was made. The EnSeal device was then used to take down intraabdominal adhesions in [facility] [address] [place] [address] OPERATIVE REPORT Name: CARLYN COHEN Room #: 241-P [facility] IN M.R.#: [id number] Admission: 02/10/18 Attend Phys: Pedro El MD Discharge: Date of : 30 Report #: [id number] the right lower quadrant for placement of a 12 mm port. The patient was placed in the Trendelenburg position, rotated to her right. Dissection was then carried out to identify the rectosigmoid junction. The sigmoid colon was quite redundant, as expected. The mesentery was opened with the EnSeal device and scored in a distal to proximal fashion. The proximal end point of dissection/transection was planned. Distally, a decision was made to transect the colon at the rectosigmoid junction. A blue load 65 mm powered JACINTO stapler was then used to staple and divide the colon. The wall of the colon was involved with staple line. A window was made inferior and posterior to the colon and an additional two firings of the blue load JACINTO stapler was used to staple off the rectal stump. The sigmoid mesentery was then divided with the EnSeal device with good hemostasis. A 5 mm port had been placed in the suprapubic area through a small transverse incision. This was used for retraction. This incision was then widened to accommodate a wound protector. After placement of the wound protector, the abdominal cavity was desufflated and the sigmoid colon was delivered externally. The proximal transection area was chosen. This area was felt to reach the pelvis without tension. The mesentery was divided to that area with the EnSeal device with good hemostasis. The outer pursestring device was then placed on the colon in this area and fired. The colon was divided and sent for specimen. Tags were placed on the pursestring and the pursestring device was removed. The colon was sized. A 29 mm EEA stapler was felt to best fit the colon. The 29 mm EEA stapler anvil was then placed into the open end of the colon and the pursestring suture was tied. The colon had been triangulated with Allis clamps to accomplish this. The colon containing the anvil was then replaced within the abdominal cavity. The cap was placed over the Dale wound protector and the abdominal cavity was reinsufflated. From below, the external anal sphincter was manually dilated, then sequentially dilated with small to medium sized dilators. The dilator easily reached the distal staple line. The 29 mm stapler was then advanced transanally to the staple line. The stapler was backed up slightly to exclude the staple line. The spike of the stapler was then connected to the anvil. The stapler and anvil were then tightened and fired with an audible click. The stapler was loosened and removed without difficulty. The anastomotic rings were complete as described above. The leak test was performed next. The patient was taken out of Trendelenburg position and the colon was compressed proximal to the anastomosis. Using the rigid proctoscope from below, air was gently insufflated into the rectum and no air bubbles were seen exiting from the anastomosis. This was indicative of a negative leak test. The colon was then decompressed and the proctoscope was removed. The fluid was suctioned from the abdominal cavity. There was no tension on the anastomosis. The 12 mm port site fascial opening was then closed with the [address] [address] OPERATIVE REPORT Name: CARLYN COHEN Room #: 241-P [facility] IN M.R.#: [id number] Admission: 02/10/18 Attend Phys: Pedro El MD Discharge: Date of : 30 Report #: [id number] laparoscopic fascial closure device using an 0 PDS suture. The abdominal cavity was then desufflated. The ports were removed. The wound protector was then removed. The anterior rectus sheath fascia was then closed with a running #1 PDS suture with incorporation of the peritoneum. The port site incisions were closed with interrupted subcuticular 4-0 Monocryl sutures and a running 4-0 Monocryl subcuticular suture was used to close the small low transverse incision. Dermabond was applied to all suture lines. The patient tolerated the procedure well. She was taken out of the dorsal lithotomy position, awakened, extubated, and taken to recovery room in stable condition with no apparent intraoperative complications. <ELECTRONICALLY SIGNED> By: Everardo Vidal MD, FACS 03/05/18 [id number] Everardo Vidal MD, FACS /nt
[2018-03-06] VITALS (16 sets, daily range): BP systolic 125–166; BP diastolic 47–72
--- NOTE | 2018-03-06 06:00 | NUR ---
PT RESTING QUIETLY. REMAINS ON ROOM AIR O2 SAT 98 %. ABD LAP SITES ARE DRY AND INTACT. PEG TUBE IN PLACE AND CLAMPED. REPOSITIONED. WILL CONT TO MONITOR CLOSELY
[2018-03-06 07:43] LABS: HEMATOCRIT 27.2 % (37.0-47.0); HEMOGLOBIN 8.9 gm/dL (12.0-15.0); MCH 30.2 pg (26.0-34.0); MCHC 32.7 g/dL (28.0-37.0); MCV 92.4 fL (80.0-100.0); RBC 2.94 mil/uL (4.20-5.00); RDW 18.3 % (10.5-14.5)
[2018-03-06 07:56] LABS: ALBUMIN 1.8 g/dL (3.4-5.0); POTASSIUM 3.7 mmol/L (3.5-5.1); TOTAL BILIRUBIN 0.4 mg/dL (<0.1-1.0); TOTAL PROTEIN 5.6 g/dL (6.4-8.2)
[2018-03-06 08:39] LABS: BE(vivo) -2.4 mmol/L (-2 to +3); HCO3 21.2 mmol/L (22.0-26.0); PCO2 31.8 mmHg (35.0-45.0); PO2 83.6 mmHg (80.0-100.0); pH 7.441 (7.360-7.450); sO2 96.7 % (92.0-98.0)
--- NOTE | 2018-03-06 11:53 | NUR ---
Assumed care of patient at 0700. Patient is more easily arousable today than previous. Eyes open to voice, nod/shakes head appropriately to questions. Follows simple commands. Seen by surgery and renal. IVF adjusted as ordered. Ok'd to transfer out of ICU to [facility]. Awaiting bed placement to call report.
--- NOTE | 2018-03-06 13:27 | NUR ---
PT ARRIVED TO UNIT TRANSFER FROM ICU. AT NEUROLOGIC BASELINE PT NODS HEAD YES AND NO. OPENS EYES TO VOICE AND TRACKS. DENIES PAIN AND SOA. NOON VSS PRIOR TO TRANSFER. WILL MONITOR VS Q4. NO DISTRESS NOTED.
--- NOTE | 2018-03-06 17:37 | NUR ---
PT REMAINS CLINICALLY STABLE, VSS. WILL REASSESS BS AT 1800. TURNING PT Q2HRS. PT DOES VERBALLY RESPOND MINIMALLY BUT APPROPRIATELY. FOLLOWS SIMPLE COMMANDS. FAMILY AT BEDSIDE FOR SHORT PERIOD THIS SHIFT. UPDATED TO POC AND DENY QUESTIONS OR CONCERNS. ELLIE PATENT. IVF RUNNING. NO DISTRESS NOTED.
--- NOTE | 2018-03-07 02:58 | NUR ---
ASSUMED PT CARE AT 1900. PT WAS DROWSY/SLEEPY DURING SHIFT CHANGE. VITAL SIGNS STABLE, ASSESSMENT CHARTED. NO COMPLSAINTS OF CHEST PAIN BUT PATIENT SEEMED AGITATED AND WAS GRIMACING ESPECIALLY WITH ABDOMINAL PALPATION. 25MCG OF FENTANYL WAS ORIGINALLY GIVEN WHICH ONLY PARTIALLY HELPED WITH THE PAIN. DR. YANCEY DURING HIS ROUNDS REQUESTED THAT ANOUTHER 25MCG OF FENTANYL BE GIVEN SINCE THE ONE GIVEN 1HR PRIOR DID NOT SEEMED TO WORK VERY WELL. PT SEEMED COMFORTABLE AFTERWARDS AND SLEPT WELL FOR THE MOST PART OF THE NIGHT. NO BOWEL SOUNDS OR BOWEL MOVEMENTS AT THIS TIME. PROGRESSING SLOWLY TOWARD PLAN OF CARE. WILL CONTINUE TO CLOSELY MONITOR.
[2018-03-07 03:48] VITALS: BP 148/55
[2018-03-07 04:13] LABS: HEMATOCRIT 25.4 % (37.0-47.0); HEMOGLOBIN 8.3 gm/dL (12.0-15.0); MCH 30.3 pg (26.0-34.0); MCHC 32.7 g/dL (28.0-37.0); MCV 92.8 fL (80.0-100.0); RBC 2.74 mil/uL (4.20-5.00); RDW 18.6 % (10.5-14.5); WBC 12.7 thou/uL (4.0-11.0)
[2018-03-07 04:21] LABS: ALBUMIN 1.6 g/dL (3.4-5.0); CALCIUM 7.8 mg/dL (8.5-10.1); CREATININE 1.9 mg/dL (0.6-1.0); PHOSPHORUS 2.2 mg/dL (2.5-4.9); POTASSIUM 3.2 mmol/L (3.5-5.1)
[2018-03-07 07:30] VITALS: BP 150/47
[2018-03-07 11:55] VITALS: BP 132/51
[2018-03-07 15:40] VITALS: BP 149/46
--- NOTE | 2018-03-07 17:15 | NUR ---
ASSUMED [place] CARE APPROX 0700. PT AT BASELINE NEURO STATUS. DENIES PAIN AND SOA. VSS. BS WNL AT 1200. LAP SITES C/D/I. TURNING PT Q2HRS AND PRN. FAMILY AT BEDSIDE FOR SHORT PERIOD AND RECEIVED UPDATE REGARDING POC AND DENIES QUESTIONS OR CONCERNS REGARDING POC AT THIS TIME. ARGUETA PATENT. IVF AND ABT REMAIN PART OF POC. PICC LINE PATENT. NO DISTRESS NOTED.
[2018-03-07 19:46] VITALS: BP 148/63
--- NOTE | 2018-03-08 02:55 | NUR ---
ASSUMED PT CARE AT 1900. PT WAS AWAKE, ORIENTED TO PERSON, REORIENTED TO PLACE, DATE AND SITUATION. VITAL SIGNS STABLE, ASSESSMENT CHARTED. NO COMPLAINTS OF CHEST PAIN. ABDOMINAL PAIN MANAGED WITH PAIN MEDICATION. PT HAD A BOWEL MOVEMENT. STOOL BLOOD TINGED. DR. YANCEY AWARE. PT RESTED WELL THROUGH THE NIGHT. PROGRESSING TOWARD PLAN OF CARE. WILL CONTINUE TO MONITOR.
[2018-03-08 03:39] VITALS: BP 138/55
[2018-03-08 03:58] LABS: ALBUMIN 1.6 g/dL (3.4-5.0); CALCIUM 7.7 mg/dL (8.5-10.1); CREATININE 1.7 mg/dL (0.6-1.0); PHOSPHORUS 2.4 mg/dL (2.5-4.9); POTASSIUM 3.8 mmol/L (3.5-5.1)
[2018-03-08 04:28] VITALS: BP 118/49
[2018-03-08 07:40] VITALS: BP 147/55
--- NOTE | 2018-03-08 10:43 | NUR ---
When tube feeding ready to resume, recommend change formula to osmolite 1.5 to reach goal 45ml/hr. Defer fluid needs to renal.
[2018-03-08 11:20] VITALS: BP 154/64
--- NOTE | 2018-03-08 12:20 | NUR ---
WOUND CARE FOLLOW UP; BILATERAL HEELS REMAIN INTACT. THE HEELS ARE BEING OFFLOADED APPROPRIATLEY. NO NEW AREAS IDENTIFIED. RECOMMENDATIONS; NO CHANGES AT THIS TIME. DISCUSSED WITH RN
[2018-03-08 15:20] VITALS: BP 158/55
[2018-03-08 21:30] VITALS: BP 140/59
--- NOTE | 2018-03-09 03:31 | NUR ---
ASSUMED PT CARE AT 1900 WITH BEDSIDE REPORT COMPLETED. NO SIGN OF DISTRESS NOTED IN PT, PT IS DROWSY AND NO FAMILY AT BEDSIDE. NO SIGN OF DISTRESS NOTED IN PT. SCHEDULED MED ADMINISTERED TO PT. PT IS STABLE, VITAL SIGNS STABLE. DENIES ANY NEED, BLOOD SUGAR CHECKED. REPORT IS GIVEN TO ANOTHER RN AT 0245. PT IS STABLE. DENIES ANY FURTHER NEEDS AT THIS TIME.
[2018-03-09 04:28] LABS: HEMATOCRIT 26.5 % (37.0-47.0); HEMOGLOBIN 8.8 gm/dL (12.0-15.0); MCHC 33.1 g/dL (28.0-37.0); MCV 93.4 fL (80.0-100.0); RBC 2.84 mil/uL (4.20-5.00); RDW 18.8 % (10.5-14.5); WBC 9.7 thou/uL (4.0-11.0)
[2018-03-09 04:43] LABS: ALBUMIN 1.5 g/dL (3.4-5.0); CALCIUM 7.7 mg/dL (8.5-10.1); CREATININE 1.7 mg/dL (0.6-1.0); PHOSPHORUS 2.1 mg/dL (2.5-4.9)
[2018-03-09 04:45] VITALS: BP 151/59
--- NOTE | 2018-03-09 05:40 | NUR ---
PATIENTS CARES WERE ASSUMED AT APPROX 0030 FROM ANOTHER NURSE ON THE FLOOR. PATIENT WAS ASSESSED AND MEDS WERE PASSED. HOURLY ROUNDS WERE DONE. THE BED ALARM IS ON AND THE BED IS IN A LOW AND LOCKED POSITION
[2018-03-09 07:45] VITALS: BP 141/58
[2018-03-09 11:40] VITALS: BP 149/58
--- NOTE | 2018-03-09 12:42 | NUR ---
FOLLOWING FOR DC PLANNING. CLINICAL INFO REVIEWED. PT IS POD #4 LAP SIGMOID COLECTOMY AND RESTARTED ON TF 03/08/18. PT FROM LTC AT [facility]. COMMUNICATED WITH DR. DOLAN THIS AM AND PT MORENA FROM SURGICAL STANDPOINT FOR TRANSITION OF CARE. UPDATE TO DR. YANCEY COVERING FOR DR. NEWBERRY. DR. YANCEY RECOMMENDS LTAC AND FEELS PT WOULD BENEIFT FROM DAILY PHYSICIAN ROUNDS FOR MONITORING OF RENAL FUNCTION, AND TF TOLERATION WELL DC CLEANING ATTENDANT INSTRUCTED TO FAX CLINICAL UPDATE TO [facility] ADMISSIONS. SWS MORGAN SPOKE WITH PT'S DTR MACY BY PHONE AOUT RECOMMNEDATION OF LTQAC AND PROVIDED LTAC OPTIONS. MACY INDICATED SHE WOULD REVIEW/RESEARCH LTAC OPTIONS AND ASKED FOR CM TO CALL HER BACK AFTER 3 PM TODAY.
--- NOTE | 2018-03-09 12:54 | NUR ---
FAXED CLINICAL UPDATE TO CM SPOKE WITH [facility] IN ADM. AND SHE RECEIVED UPDATE AND MENTIONED THAT THEY CANNOT TAKE PT. BACK IF SHE HAS A RECTAL TUBE. NOTIFIED SW AND WILL INTO LTC FACILITY. DCP TO FOLLOW.
[2018-03-09 15:55] VITALS: BP 136/57
--- NOTE | 2018-03-09 16:06 | NUR ---
SPOKE WITH DTR SHE IS INTERESTED IN [facility]. REQUESTED CHELSIE HERNANDEZ IN AM
--- NOTE | 2018-03-09 19:11 | NUR ---
ASSESSMENTS COMPLETED AND DOCUMENTED. NO S/SX OF CARDIAC OR RESP DISTRESS. PT Q2T, PT CAN ANSWER ORIENTATION QUESTIONS BY SHAKING HEAD AND SPEAKING SOME WORDS. PT DENIES PAIN THROUGH SHIFT. PT TOLERATING TUBE FEEDING AT 45ML/HR. WILL CONTINUE TO MONITOR.
[2018-03-09 20:15] VITALS: BP 145/57
[2018-03-10 04:45] VITALS: BP 147/55
[2018-03-10 04:49] LABS: HEMATOCRIT 26.8 % (37.0-47.0); HEMOGLOBIN 8.5 gm/dL (12.0-15.0); MCHC 31.8 g/dL (28.0-37.0); MCV 94.4 fL (80.0-100.0); RBC 2.83 mil/uL (4.20-5.00); RDW 18.5 % (10.5-14.5); WBC 9.4 thou/uL (4.0-11.0)
[2018-03-10 05:03] LABS: ALBUMIN 1.4 g/dL (3.4-5.0); CALCIUM 7.3 mg/dL (8.5-10.1); CREATININE 1.5 mg/dL (0.6-1.0); PHOSPHORUS 1.5 mg/dL (2.5-4.9); POTASSIUM 3.2 mmol/L (3.5-5.1)
--- NOTE | 2018-03-10 05:13 | NUR ---
ASSUMED PT CARE AT 1900. PT ALERT AND AWAKE DURING REPORT. PT WAS ABLE TO ANSWER ORIENTATION QUESTIONS AND FOLLOW SIMPLE COMMANDS. NO COMPLAINTS OF PAIN/CHEST PAIN. VITAL SIGNS STABLE. ASSESSMENT CHARTED. RESTED WELL THROUGH THE NIGHT. HAD 2 BOWEL MOVEMENTS. TOLERATING FEEDING (OSMOLITE 1.5 @ 45ML). q2HR TURNS. PROGRESSING TOWARD PLAN OF CARE. CONTINUE TO MONITOR.
[2018-03-10 07:39] VITALS: BP 134/54
[2018-03-10 10:57] VITALS: BP 130/56
--- NOTE | 2018-03-10 12:08 | PATH ---
[facility] [place] [address] PATHOLOGY RPT PROCEDURE Name: VICKICARLYN Room #: 205-P ADM IN M.R.#: [id number] Admission: 02/10/18 Date of : 30 Discharge: Report #: [id number] Path Case #: [id number] [facility] Accession Number: [id number] . 01 Material submitted: . SIGMOID COLON . 01 Clinical history: . Sigmoid volvulus. . 02 Diagnosis: Large intestine, sigmoid colon, laparoscopic sigmoid resection: - 0.3 cm sessile polyp without any dysplasia identified adjacent to defect. - Hemorrhagic congested area identified adjacent to polyp, history of reduced sigmoid volvulus. - Negative for dysplasia or malignancy within the colon. - Margins of resection viable and unremarkable. (IUV/db; 03/08/18) LBQ/03/08/2018 . 02 Electronically signed: . Carlota U Vadlamani, MD, Pathologist NPI- [id number] . 01 Gross description: . Received in formalin labeled "Carlyn Linda, sigmoid colon" is a segment of large bowel measuring 40.0 cm in length and ranging from 3.5-5.2 cm in diameter. The proximal margin is received open and the distal margin is closed with a staple line. There is a full-thickness defect near to the distal margin measuring 5.2 x 2.3 cm, which has numerous staple lines encircling it. The defect has slightly irregular hemorrhagic borders and is located 36.0 cm from the proximal margin and 2.8 cm from the distal margin. The remainder of the serosa is pink-red and smooth. The specimen is opened to reveal slightly flattened and dilated pink-farfan mucosa without masses or diverticula. One sessile polyp is identified just proximal to the defect area, which measures 0.3 cm in greatest dimension. Bending Roll Operator sections are submitted as follows: A1 proximal margin A2-A3 distal margin A4-A5 tissue surrounding defect after removal of staple lines A6 sessile polyp submitted entirely ([facility] [place]; 03/07/2018) SY/SYC . 02 Pathologist provided ICD-10: K63.5, K56.2, R19.7, R14.0 . [address] [address] PATHOLOGY RPT PROCEDURE Name: CARLYN LINDA Room #: 205-P [facility] IN M.R.#: [id number] Admission: 02/10/18 Date of : 30 Discharge: Report #: [id number] Path Case #: [id number] CPT . [id number] Specimen Comment: A courtesy copy of this report has been sent to Specimen Comment: [phone], , . Specimen Comment: Report sent to ,DR GARNETT / DR NEWBERRY Specimen Comment: A duplicate report has been generated due to demographic updates. Performed at: [address], [place] [id number] MD Yasir Greenfield MD Phone: [phone] Performed at: [address] [id number] MD Carlota Haynes MD Phone: [phone]
--- NOTE | 2018-03-10 13:49 | NUR ---
[facility] so and accepting of patient pending bed avail at their facility. Updated dtr who is in agreement with plan. [facility] ass[facility] can return to [facility] once patient stable from LTAC. casemgt following
[2018-03-10 15:08] VITALS: BP 139/54
--- NOTE | 2018-03-10 18:48 | NUR ---
ASSUMED CARE OF PT AT APPROX 1400. PT IS ALERT, ABLE TO ANSER YES AND NO QUESTIONS, BUT NOT ABLE TO VARRY PROPER CONVERSATION. MONITORED ON TELE. ASSESSMENT CHARTED. ABLE TO MAINTAIN 02 SAT >90 ON RA. BLOOG GLUCOSE TREATED ORDERED. ARGUETA REMAINS IN PLACE TO DD. PEG TUBE WITH TUBE FEEDING. POTASSIUM WNL, WILL CONTINUE TO MONITOR ELECTROLYTES PER PROTOCOL. PT TO BE DC TOMORROW POSSIBLY TO LTAC. MAKING GOOD PROGRESS TOWARDS POC GOALS. WILL CONTINUE TO MONITOR.
[2018-03-10 20:15] VITALS: BP 141/57
--- NOTE | 2018-03-11 03:53 | NUR ---
ASSUMED PT CARE AT 1900. PT ALERT, ORIENTED TO SELF AND OCCASSIONALLY TO PLACE. FREQUENT REORIENTATION REINFORCED. NO COMPLAINTS OF CHEST PAIN. ABDOMINAL PAIN MANAGED WELL WITH PAIN MEDICATION. Q2 TURNS COMPLETED. PT TOLERATION TUBE FEEDINGS. PROGRESSING TOWARD PLAN OF CARE. POSSIBLE DISCHARGE TO [facility] IN AM. CONTINUE TO MONITOR.
[2018-03-11 03:58] LABS: ALBUMIN 1.4 g/dL (3.4-5.0); CALCIUM 7.4 mg/dL (8.5-10.1); CREATININE 1.5 mg/dL (0.6-1.0); PHOSPHORUS 1.2 mg/dL (2.5-4.9); POTASSIUM 3.3 mmol/L (3.5-5.1)
[2018-03-11 04:04] LABS: HEMATOCRIT 24.9 % (37.0-47.0); HEMOGLOBIN 8.1 gm/dL (12.0-15.0); MCH 30.6 pg (26.0-34.0); MCHC 32.6 g/dL (28.0-37.0); MCV 94.1 fL (80.0-100.0); RBC 2.65 mil/uL (4.20-5.00); RDW 18.9 % (10.5-14.5); WBC 9.3 thou/uL (4.0-11.0)
[2018-03-11 04:45] VITALS: BP 136/53
[2018-03-11 07:29] VITALS: BP 126/50
--- NOTE | 2018-03-11 10:40 | NUR ---
patient accepted to [facility]. [facility] unsure of bed avail at this time. They will update this afternoon.
--- NOTE | 2018-03-11 14:03 | NUR ---
no bed at [facility] today possibly tomorrow, notfied dtr, and phys.
[2018-03-11 19:50] VITALS: BP 135/52
--- NOTE | 2018-03-12 02:22 | NUR ---
ASSUMED CARE OF PT AT SHIFT CHANGE. ASSESSMENTS CHARTED. MEDS GIVEN PER APR. PT ALERT AND ORIENTED TO PERSON AND PLACE, REORIENTING WHEN AWAKE. ABDOMINAL PAIN MANAGED WITH IV PAIN MEDS. OSMOLITE 1.5 RUNNING 45ML/HR. O2 SATS REMAINING WNL ON ROOM AIR. NO S/SX OF CARDIAC OR RESP DISTRESS NOTED. PLAN IS TO DC TO [facility] IN AM IF BED AVAILABLE. PT RESTING WELL THROUGHOUT NIGHT. WILL CONTINUE TO MONITOR AND FOLLOW POC.
[2018-03-12 04:39] VITALS: BP 148/57
[2018-03-12 07:15] VITALS: BP 155/49
[2018-03-12 12:00] VITALS: BP 144/62
--- NOTE | 2018-03-12 12:55 | NUR ---
YAMINI FROM [facility] CONFIRMS BED FOR TODAY, RM 217, AND REQUEST CURATOR HERBARIUM TIME AT [facility] [place] [address]. [address] YANCEY WHO CONFIRMS HE WILL DO DC ORDERS BETWEEN 1200 AND 1330. DC RECORD FILING CLERK TO SET UP [facility] TRANSPORT FOR AROUND 1500. CHART COPIED. RN PROVIDED WITH # FOR REPORT. SPOKE WITH PT'S DTR MACY, SHE IS AGREEABLE TO DC PLAN AND PROVIDED HER WITH FACILITY ADDRESS AND CONTACT #.
[2018-03-12] MEDS ORDERED: PROBIOTIC1 EAC1 PER TUBE (13:27)
[2018-03-12] MEDS ORDERED: PIPERACIL-TA3.375 G1 IV (13:27)
[2018-03-12] MEDS ORDERED: ENOXAPARIN30 MG/0.1 SUBQ (13:27)
[2018-03-12] MEDS ORDERED: FENTANYL 0.50 MCG/ML IV PUSH (13:27)
[2018-03-12] MEDS ORDERED: NOVOLOG100 UNIT/1 SUBQ (13:27)
[2018-03-12] MEDS ORDERED: PROCRIT20000 UNIT SUBQ (13:27)
[2018-03-12] MEDS ORDERED: DEXTROSE 10% IV (13:38)
--- NOTE | 2018-03-12 14:09 | NUR ---
PT. DISCHARGING TODAY TO [facility] FAXED DC ORDERS/SUMMARY TO FACILITY AND SPOKE WITH PATIENCE IN ADM. SHE RECEIVED DC ORDERS AND DCP ARRANGED TRANSPORT VIA [facility] FOR 1530 TODAY. DTR NOTIFIED PER LANIE. UNIT NOTIFIED AND CHART COPY PER [place]. RN TO CALL REPORT TO [phone].
[2018-03-12 15:25] VITALS: BP 141/58
== END 2018-03-12 16:00 | DRG 981 ==
LOC: ER 01:31 → ICU 05:44 → EROBS 05:44 → 3W 05:44 → ICU 03-05 15:54 → 2N 03-06 13:10
PROVIDERS: Emergency Medicine; Hospitalist; Internal Medicine; Internal Medicine Cardiovascular Disease; Internal Medicine Nephrology; Surgery; ADMIT Internal Medicine
PROC: 02H633Z Insertion of Infusion Device into Right Atrium, Percutaneous Approach (ICD-10-PCS; 2018-02-10)
PROC: 0DBE8ZX Excision of Large Intestine, Via Natural or Artificial Opening Endoscopic, Diagnostic (ICD-10-PCS; 2018-02-18)
PROC: 0DJ08ZZ Inspection of Upper Intestinal Tract, Via Natural or Artificial Opening Endoscopic (ICD-10-PCS; 2018-02-25)
PROC: 0DH63UZ Insertion of Feeding Device into Stomach, Percutaneous Approach (ICD-10-PCS; 2018-02-25)
PROC: 0D9P8ZZ Drainage of Rectum, Via Natural or Artificial Opening Endoscopic (ICD-10-PCS; 2018-03-02)
PROC: 30233N1 Transfusion of Nonautologous Red Blood Cells into Peripheral Vein, Percutaneous Approach (ICD-10-PCS; 2018-03-04)
PROC: 0DTN4ZZ Resection of Sigmoid Colon, Percutaneous Endoscopic Approach (ICD-10-PCS; principal; 2018-03-05)
DX: N17.0 Acute kidney failure with tubular necrosis (principal); K56.2 Volvulus; E43 Unspecified severe protein-calorie malnutrition; E87.1 Hypo-osmolality and hyponatremia; N39.0 Urinary tract infection, site not specified; E87.2 Acidosis; I69.354 Hemiplegia and hemiparesis following cerebral infarction affecting left non-dominant side; F32.9 Major depressive disorder, single episode, unspecified; N18.3 Chronic kidney disease, stage 3 (moderate); E11.51 Type 2 diabetes mellitus with diabetic peripheral angiopathy without gangrene; E87.6 Hypokalemia; R14.0 Abdominal distension (gaseous); E86.9 Volume depletion, unspecified; K52.9 Noninfective gastroenteritis and colitis, unspecified; E86.0 Dehydration; M19.042 Primary osteoarthritis, left hand; M19.041 Primary osteoarthritis, right hand; D50.9 Iron deficiency anemia, unspecified; R09.89 Other specified symptoms and signs involving the circulatory and respiratory systems; E11.65 Type 2 diabetes mellitus with hyperglycemia; K56.41 Fecal impaction; I25.10 Atherosclerotic heart disease of native coronary artery without angina pectoris; E11.649 Type 2 diabetes mellitus with hypoglycemia without coma; B96.20 Unspecified Escherichia coli [E. coli] as the cause of diseases classified elsewhere; R13.12 Dysphagia, oropharyngeal phase; E78.5 Hyperlipidemia, unspecified; E11.22 Type 2 diabetes mellitus with diabetic chronic kidney disease; E83.42 Hypomagnesemia; I12.9 Hypertensive chronic kidney disease with stage 1 through stage 4 chronic kidney disease, or unspecified chronic kidney disease; I48.0 Paroxysmal atrial fibrillation; K29.80 Duodenitis without bleeding; J32.0 Chronic maxillary sinusitis; T68.XXXA Hypothermia, initial encounter; Z79.82 Long term (current) use of aspirin; Z90.49 Acquired absence of other specified parts of digestive tract; Z90.710 Acquired absence of both cervix and uterus; Z95.820 Peripheral vascular angioplasty status with implants and grafts; Z80.42 Family history of malignant neoplasm of prostate; Z79.899 Other long term (current) drug therapy; Z68.24 Body mass index [BMI] 24.0-24.9, adult
CPT/HCPCS: 10078; 10081; 10879; 27000; 50010; 50101; 50249; 50290; 50386; 50445; 50455; 50525; 50555; 50558; 50740; 50804; 51398; 51489; 52265; 53307; 54022; 54118; 56462; 56524; 56525; 56526; 56753; 57092; 62110; 62900; 70005

== ENCOUNTER 2018-04-02 15:39 | Inpatient (IN) | payer OTHER ==
[2018-04-02] VITALS (18 sets, daily range): BP systolic 84–113; BP diastolic 34–53
[~2018-04-02] VITALS: Ht 154.9 cm; Wt 64.7 kg
[~2018-04-02 15:39] MED LIST changes: +DEXTROSE 10% IV; +ENOXAPARIN30 MG/0.1 SUBQ; +FENTANYL 0.50 MCG/ML IV PUSH; +NOVOLOG100 UNIT/1 SUBQ; +PIPERACIL-TA3.375 G1 IV; +POTASSIUM20 PO; +PROBIOTIC1 EAC1 PER TUBE; +PROCRIT20000 UNIT SUBQ
[2018-04-02 16:00] LABS: HEMATOCRIT 34.9 % (37.0-47.0); HEMOGLOBIN 11.2 gm/dL (12.0-15.0); MCV 96.8 fL (80.0-100.0); PLATELET COUNT 210 thou/uL (150-400); RBC 3.61 mil/uL (4.20-5.00); RDW 19.7 % (10.5-14.5); WBC 30.5 thou/uL (4.0-11.0)
[2018-04-02 16:13] LABS: URINE BILIRUBIN NEGATIVE (Negative); URINE BLOOD 1+ (Negative); URINE CLARITY CLOUDY; URINE GLUCOSE-RANDOM* NEGATIVE (Negative); URINE KETONES TRACE (Negative); URINE NITRITE-REFLEX NEGATIVE (Negative); URINE PROTEIN (DIPSTICK) TRACE (Negative); URINE SPECIFIC GRAVITY >= 1.030 (1.005-1.035); URINE UROBILINOGEN 0.2 E.U./dl (0.2-1.0)
[2018-04-02 16:14] LABS: URINE COLOR DARK YELLOW; URINE LEUKOCYTES-REFLEX 2+ (Negative)
[2018-04-02 16:14] LABS: CREATININE 3.8 mg/dL (0.6-1.0); POTASSIUM 3.4 mmol/L (3.5-5.1)
[2018-04-02 16:18] LABS: CASTS None Seen /LPF (None Seen); SQUAMOUS 0-3 Few /LPF (0-3); TRANSITIONAL EPITHEL CELL 0-3 Few /LPF (None Seen); URINE RBC 3-10 Few /HPF (0-2); URINE WBC-REFLEX 6-15 Few /HPF (0-5); YEAST-REFLEX Present (None Seen)
[2018-04-02 16:19] LABS: CRYSTALS None Seen /LPF (None Seen)
[2018-04-02 16:21] LABS: AMP/METHAMP Negative (Negative); BARBITURATES Negative (Negative); BENZODIAZEPINES Negative (Negative); COCAINE Negative (Negative); METHADONE Negative (Negative); OPIATES Negative (Negative); PCP Negative (Negative)
[2018-04-02 16:21] LABS: ALBUMIN 1.1 g/dL (3.4-5.0); MAGNESIUM 2.2 mg/dL (1.8-2.4); TOTAL BILIRUBIN 0.5 mg/dL (<0.1-1.0); TROPONIN-I 0.06 ng/mL (<0.06)
--- NOTE | 2018-04-02 16:21 | EKG ---
[place] [address] [place] [address] ELECTROCARDIOGRAM REPORT Name: CARLYN COHEN Room #: [facility]#: [id number] Admission: 04/02/18 Attend Phys: Discharge: Date of : 30 Report #: [id number] THIS REPORT FOR: //name// [facility] ED Test Date: 2018-04-02 Test Time: 15:37:15 Pat Name: CARLYN COHEN Department: Room: Gender: F Education Assistant: : 1930 Requested By: Irving Calvert Order Number: [id number] MD: Vern Spencer Measurements Intervals [place] Rate: 85 P: 269 TN: 159 QRS: -9 QRSD: 120 T: 151 QT: 436 QTc: 519 Interpretive Statements Ectopic atrial rhythm Incomplete left bundle branch block Compared to ECG 02/25/2018 15:14:58 Ectopic atrial rhythm now present Electronically Signed On 04-02-2018 16:21:36 [employer] by Vern Spencer [email or web address] <ELECTRONICALLY SIGNED> By: Vern Spencer MD, [facility] 04/02/18 1621 1537 36 Vern Spencer MD, FACC /EPI
[2018-04-02 16:30] LABS: ABSOLUTE NEUTROPHILS 25.6 thou/uL (1.4-8.2); ANISOCYTOSIS 2+; PLATELET ESTIMATE NORMAL; POLYCHROMASIA 1+
--- NOTE | 2018-04-02 18:38 | NUR ---
PT'S BLOOD PRESSURE REMAINS CRITICAL, ERP AWARE, SEE EMAR FOR MEDS GIVEN. PT HAS HAD 1500 CC NS PER RAPID INFUSION, 3RD NS BAG HANGING NOW AT 125 CC/HR, SEE EMAR. PT LOOKING TO THE LEFT, DOES NOT FOLLOW COMMANDS, NOT NEW FOR PT. DR FOX AWARE OF PT STATUS, AWAITING BED IN ICU.
--- NOTE | 2018-04-02 19:16 | NUR ---
REPORT TO GHADA PNAIAGUA. WILL TRANSPORT PT TO ICU
[2018-04-02 21:02] LABS: BE(vivo) -7.5 mmol/L (-2 to +3); HCO3 15.8 mmol/L (22.0-26.0); PCO2 25.8 mmHg (35.0-45.0); PO2 90.6 mmHg (80.0-100.0); pH 7.404 (7.360-7.450); sO2 97.1 % (92.0-98.0)
[2018-04-02 21:04] LABS: HEMATOCRIT 33.1 % (37.0-47.0); HEMOGLOBIN 10.5 gm/dL (12.0-15.0); MCH 30.7 pg (26.0-34.0); MCHC 31.7 g/dL (28.0-37.0); MCV 96.9 fL (80.0-100.0); PLATELET COUNT 206 thou/uL (150-400); RBC 3.42 mil/uL (4.20-5.00); RDW 20.1 % (10.5-14.5); WBC 34.1 thou/uL (4.0-11.0)
[2018-04-02 21:21] LABS: APTT 27.3 Seconds (24.5-32.8); CALCIUM 7.3 mg/dL (8.5-10.1); CREATININE 3.5 mg/dL (0.6-1.0); FIBRINOGEN 468.1 mg/dL (210-360); PROTIME 10.6 Seconds (9.3-11.4)
[2018-04-02 21:23] LABS: AMYLASE 55 U/L (25-115); LIPASE 334 U/L (73-393)
[2018-04-02 21:35] LABS: METAMYELOCYTES 1 %
[2018-04-02 21:37] LABS: ANISOCYTOSIS 2+; POLYCHROMASIA OCCASIONAL
[2018-04-02 21:38] LABS: BURR CELLS FEW; PLATELET ESTIMATE NORMAL; SCHISTOCYTES OCCASIONAL; TEARDROPS OCCASIONAL
--- NOTE | 2018-04-02 22:15 | NUR ---
PT ARRIVED FROM ED AT 1940. PT ABLE TO OPEN EYES TO VERBAL STIMULI AND IS ABLE TO SUPERVISOR METALIZING WEAKLY WITH RIGHT HAND. PT SR ON THE MONITOR. BP SOFT. URINE OUTPUT MARGINAL. DR NEWBERRY CALLED AT 2029 AND UPDATED ON PATIENT LAB AND STATUS. SEPSIS PROTOCOL INITIATED PER DR NEWBERRY. PT'S BLOOD GLUCOSE ELEVATED WILL BEGIN INSULIN GTT PER SEPSIS PROTOCOL. PT'S SON UPDATED AT BEDSIDE AND PATIENT CODE AND ICU EDUCATION GIVEN. REPORT GIVEN TO ONCOMING RN, AUN.
--- NOTE | 2018-04-02 23:40 | NUR ---
Pt with low UO notes. She made only 25 cc since admit in ICU. BP were soft and MAP < 65 mmHG. Those are improving with Levophed gtt. Notified regarding of low UO and pt's current conditions. New orders obtain.
[2018-04-03] VITALS (95 sets, daily range): BP systolic 85–136; BP diastolic 21–107
[2018-04-03 01:31] LABS: CALCIUM 7.6 mg/dL (8.5-10.1); CREATININE 3.5 mg/dL (0.6-1.0); POTASSIUM 4.3 mmol/L (3.5-5.1)
[2018-04-03 01:52] LABS: BE(vivo) -10.7 mmol/L (-2 to +3); HCO3 13.3 mmol/L (22.0-26.0); PCO2 24.9 mmHg (35.0-45.0); PO2 87.8 mmHg (80.0-100.0); pH 7.346 (7.360-7.450); sO2 96.5 % (92.0-98.0)
--- NOTE | 2018-04-03 02:12 | NUR ---
Notified regarding of ABG, low, UO and pt's current conditions. Order lasix 100 mg IVP x1.
[2018-04-03 06:39] LABS: RDW 20.4 % (10.5-14.5)
[2018-04-03 06:42] LABS: MCH 30.7 pg (26.0-34.0); MCHC 31.3 g/dL (28.0-37.0); MCV 98.2 fL (80.0-100.0); PLATELET COUNT 230 thou/uL (150-400); RBC 4.08 mil/uL (4.20-5.00)
[2018-04-03 06:50] LABS: HEMOGLOBIN 12.5 gm/dL (12.0-15.0)
--- NOTE | 2018-04-03 07:00 | NUR ---
Pt remains in critical conditions in this shift. No changes from last assessment. Continue to be on levophed due to hypotension. MAP has been > 65 mmHG. Hyperglycemic has been improved with insulin gtt. Urine output has improved after second dose of lasix IV. She made total of 200 cc of urine in this shift. Report is hand off to am shift RN.
[2018-04-03 07:03] LABS: CREATININE 3.5 mg/dL (0.6-1.0); POTASSIUM 3.7 mmol/L (3.5-5.1)
[2018-04-03 08:01] LABS: ABSOLUTE NEUTROPHILS 40.2 thou/uL (1.4-8.2); ANISOCYTOSIS 1+; ATYPICAL LYMPHS 1 %; BURR CELLS FEW; METAMYELOCYTES 3 %; POLYCHROMASIA SLIGHT
[2018-04-03 08:02] LABS: POIKILOCYTOSIS 1+; TARGET CELLS OCCASIONAL
--- NOTE | 2018-04-03 13:03 | HC ---
[facility] [place] [address] [place] [address] CONSULTATION Name: VICKICARLYN L Room #: 242-P ADM IN M.R.#: [id number] Admission: 04/02/18 Attend Phys: Pedro El MD Discharge: Date of : 30 Report #: [id number] THIS REPORT FOR: //name// CC: Pedro El REFERRING PHYSICIAN: Dr. El. REASON FOR REFERRAL: Sepsis. HISTORY OF PRESENT ILLNESS: The patient is an 87-year-old -[place]ish female who was brought to Emergency Room with altered mental status. She was felt to have urinary tract infection along with sepsis. A Pulmonary Critical Care consultation was requested. The patient has multiple medical problems including history of CVA with aphasia, left hemiparesis, hypertension, diabetes mellitus type 2, chronic kidney disease, depression, peripheral artery disease. She was most recently hospitalized in January for volvulus. The patient underwent laparoscopic sigmoid colectomy with stapled end-to-end anastomosis. Surgery was on 03/05/2018. The patient had a slow recovery postoperatively. She required LTAC and subsequently to the facility. According to records, she was doing fairly well except for gradual worsening hyperglycemia. On the day prior to presentation the patient was felt to be altered from her normal mental status. For that reason, she was brought to the Emergency Room. Currently, she is somnolent. Arousable with deep sternal rub. When she was transferred to the ICU she was hypotensive, oliguric, requiring IV fluid boluses along with vasopressors. PAST MEDICAL HISTORY: As mentioned above, recent laparoscopic sigmoidectomy and end-to-end anastomosis as mentioned above, hypertension, depression, diabetes mellitus type 2, chronic kidney disease type 3, CVA with aphasia, left hemiparesis in 2013, peripheral artery disease, undergone angioplasty involving the left lower extremity. PAST SURGICAL HISTORY: As mentioned above including appendectomy. ALLERGIES: None to medications. MEDICATIONS: From the facility are reviewed, these include Lovenox, Procrit, fentanyl, NovoLog, Zosyn, probiotic. FAMILY HISTORY: Noncontributory. [facility] [address] [place] [address] CONSULTATION Name: CARLYN COHEN Room #: 242-P [facility] IN ..#: [id number] Admission: 04/02/18 Attend Phys: Pedro El MD Discharge: Date of : 30 Report #: [id number] SOCIAL HISTORY: No tobacco or alcohol use. REVIEW OF SYSTEMS: Deferred as the patient is quite somnolent at this time. PHYSICAL EXAMINATION: GENERAL: She appears to be somnolent, in no distress. VITAL SIGNS: Temperature is 97 degrees Fahrenheit, pulse is 100, respiratory rate 30, blood pressure 97/53 mmHg, saturation 97%. HEENT: Normocephalic, atraumatic. NECK: Supple, no lymphadenopathy or thyromegaly. CHEST: Breath sounds are fair due to poor inspiratory effort. CARDIOVASCULAR: Normal S1 and S2. There are no murmurs or gallops. There is no carotid bruit. Pulses are 1/4+ bilaterally. BREASTS: Exam deferred. ABDOMEN: Soft, nontender, no organomegaly or masses felt. GENITOURINARY: Deferred. RECTAL: Deferred. EXTREMITIES: No cyanosis, clubbing, edema. NEUROLOGIC: Notable for left hemiparesis. She is quite somnolent at this time. LABORATORY DATA: Portable chest x-ray shows chronically elevated right hemidiaphragm, otherwise lung serrano are clear. UA shows positive for bacteria. Urine drug screen was negative. Lactic acid level was 3.9, sodium 141, potassium 3.4, chloride 105, CO2 of 21, BUN is 137, creatinine is 3.8. WBC 38,500, hemoglobin is 11.2. CT head was notable for severe diffuse cerebral atrophy with extensive small vessel ischemic changes, large chronic right cerebellar hemispheric infarct without change, chronic left mastoiditis. Arterial blood gas revealed pH 7.34, pCO2 of 24, pO2 of 87 on room air. Followup BMP showed sodium 145, potassium 3.7, chloride 111, bicarbonate is 13, creatinine is 3.5. Followup WBC is 49,000, 41% bands. IMPRESSION: Altered mental status in this 87-year-old female likely due to severe sepsis, probably related to urinary tract infection. She has marked leukocytosis with bandemia. She is hypotensive. 1. Severe sepsis with hypotension with metabolic acidosis. 2. Chronic kidney disease, now with oliguria. 3. Diabetes mellitus type 2. 4. Hypertension. 5. History of cerebrovascular accident, aphasic, left hemiparesis in 2002 with progressive debility and weakness. 6. Peripheral artery disease. RECOMMENDATION: We will continue aggressive fluid replacement, vasopressors along with broad spectrum antibiotics. Nephrology has been consulted given oliguria and chronic kidney disease. [facility] [address] [facility] [place] [address] CONSULTATION Name: CARLYN COHEN Room #: 242-P ADM IN M.R.#: [id number] Admission: 04/02/18 Attend Phys: Pedro El MD Discharge: Date of : 30 Report #: [id number] Respiratory status remains relatively stable for now, though she is at risk for developing respiratory compromise given severe sepsis along with mental status change. We will consider p.r.n. noninvasive positive pressure ventilation. With advanced age, multiple medical problems along with remote history of CVA, and progressive weakness, overall outlook appears to be quite guarded. DVT and GI prophylaxis will be addressed. Thank you for this consultation. <ELECTRONICALLY SIGNED> By: Juan C Mcadams MD 04/03/18 1303 1109 1212 Juan C Mcadams MD /nt
--- NOTE | 2018-04-03 13:22 | NUR ---
VASCULAR ACCESS CONSULTED FOR CENTRAL LINE, DR GANT OK WITH PICC LINE ORDERED. PT WAS PREPPED AND DRAPED FOR MAX BARRIER PRECAUTIONS. ATTEMPTED GARIMA BRACHIAL, UNABLE TO THREAD GUIDEWIRE. ATTEMPTED RACHEL BASILIC AND BRACHIAL, UNABLE TO THREAD GUIDEWIRE. ATTEMPTED LIJ AGAIN UNABLE TO THREAD GUIDEWIRE. DR NEWBERRY HERE AND NOTIFIED.
--- NOTE | 2018-04-03 16:00 | NUR ---
CENTRAL LINE PLACED BY IR DR LAM AT BEDSIDE. CONFIRMATION PLACEMENT CALLED TO DR LAM WHICH SHOWS IN RT [facility]. DR LAM STATED LINE OKAY TO USE
--- NOTE | 2018-04-03 21:10 | NUR ---
Pt looks worsen to me tonight . Her breathing is in mid 30's. Less responsive and required more Levophed to maintain her BP and MAPS. Will obtain ABG/BMP stat and call to renal once the results available.
--- NOTE | 2018-04-03 21:30 | NUR ---
Spoke with pt's daughter who is DPOA regarding of her conditions and code status. Pt will remains in FULL CODE per her DPOA.
[2018-04-03 21:34] LABS: BE(vivo) -10.9 mmol/L (-2 to +3); HCO3 11.9 mmol/L (22.0-26.0); PO2 84.5 mmHg (80.0-100.0); pH 7.398 (7.360-7.450); sO2 96.6 % (92.0-98.0)
[2018-04-03 21:35] LABS: PCO2 19.8 mmHg (35.0-45.0)
[2018-04-03 21:37] LABS: CALCIUM 6.8 mg/dL (8.5-10.1); CREATININE 3.6 mg/dL (0.6-1.0); POTASSIUM 4.6 mmol/L (3.5-5.1)
--- NOTE | 2018-04-03 21:51 | NUR ---
called back. This RN notified him regarding of increased more Levophed (from 18 mgc to 25 mcg) Current labs/blood gas/out put /vs to him. No new order at this time.
--- NOTE | 2018-04-03 23:28 | NUR ---
Clarified with regarding of General surgery consult. He want to call in am after KUB.
[2018-04-04] VITALS (86 sets, daily range): BP systolic 42–164; BP diastolic 13–113
--- NOTE | 2018-04-04 01:52 | NUR ---
PT CONDITIONS HAS GOTTEN WORSE. SHE IS MORE HYPOTENSIVE AND INCREASED MORE LABORED BREATHING. INCREASED LEVOPHED TO 30 MCG/MIN AND START VASOPRESSIN GTT TO MAINTAIN BP. WILL GET VBG STAT.
[2018-04-04 01:55] LABS: BE(vivo) -15.7 mmol/L (-2 to +3); HCO3 10.5 mmol/L (22.0-26.0); PCO2 VENOUS 26.1 mmHg (41.0-51.0); PO2 VENOUS 37.5 mmHg (35.0-45.0)
--- NOTE | 2018-04-04 02:13 | NUR ---
CALL RESULT OF VBG AND CONCERNING OF HER BREATHING STATUS AND REQUIRED MORE PRESSORS. ORDER OBTAINS FOR BIPAP SETTING 13/10 ,RATE 20. WILL NOTIFY RT.
[2018-04-04 05:06] LABS: CALCIUM 6.9 mg/dL (8.5-10.1); CREATININE 3.7 mg/dL (0.6-1.0); POTASSIUM 5.1 mmol/L (3.5-5.1)
[2018-04-04 05:18] LABS: MCH 29.9 pg (26.0-34.0); MCHC 30.1 g/dL (28.0-37.0); MCV 99.5 fL (80.0-100.0); PLATELET COUNT 230 thou/uL (150-400); RBC 3.42 mil/uL (4.20-5.00); RDW 21.1 % (10.5-14.5)
[2018-04-04 05:19] LABS: HEMOGLOBIN 10.2 gm/dL (12.0-15.0)
[2018-04-04 05:20] LABS: WBC 48.8 thou/uL (4.0-11.0)
[2018-04-04 06:13] LABS: ABSOLUTE NEUTROPHILS 36.6 thou/uL (1.4-8.2); NUCLEATED RBCS 1 /100WBC
--- NOTE | 2018-04-04 06:14 | NUR ---
Pt remains in a critical conditions. Continue to required Levophed gtt to maintain his BP. On BIPAP maintain O2 sat . Kussmaul breathing notes. TF on hold , residual checked with scant amount of what appears to be some old blood streak. 1 loose stool but it was normal in color. KUB was obtained and result is pending. Bicarb gtt per renal , labs hasn't improved and she made only 25 cc of urine within 12 hrs. Will get ABG stat and call result to appropriate physicians.
[2018-04-04 06:15] LABS: ANISOCYTOSIS 2+; MACROCYTES 1+; PLATELET ESTIMATE NORMAL; POLYCHROMASIA 1+
--- NOTE | 2018-04-04 07:30 | NUR ---
CALL ABG/LABS/CURRENT PT'S STATUS /UO/VS TO . NO NEW ORDERS HE WILL ROUND PT THIS AM.
--- NOTE | 2018-04-04 07:50 | NUR ---
Notified regarding of hold TF and scant amount of old blood was noted from her TF. Order obtained for GI consult, hold heparin and protonix IV.
--- NOTE | 2018-04-04 08:30 | NUR ---
Notified her daughter regarding of pt's condition turn to worsen and needed to be intubate. She will be here shortly.
[2018-04-04 09:06] LABS: MCV 100.3 fL (80.0-100.0)
[2018-04-04 09:08] LABS: HEMATOCRIT 29.8 % (37.0-47.0); MCH 30.4 pg (26.0-34.0); MCHC 30.3 g/dL (28.0-37.0); RBC 2.97 mil/uL (4.20-5.00); RDW 21.3 % (10.5-14.5)
[2018-04-04 09:09] LABS: CALCIUM 6.9 mg/dL (8.5-10.1); POTASSIUM 4.8 mmol/L (3.5-5.1)
[2018-04-04 09:15] LABS: WBC 54.8 thou/uL (4.0-11.0)
[2018-04-04 09:18] LABS: ALBUMIN 0.9 g/dL (3.4-5.0); TOTAL BILIRUBIN 0.8 mg/dL (<0.1-1.0); TROPONIN-I 0.27 ng/mL (<0.06)
--- NOTE | 2018-04-04 09:50 | HC ---
[facility] [address] [place] [address] CONSULTATION Name: VICKICARLYN Lesli Room #: 242-P ADM IN M.R.#: [id number] Admission: 04/02/18 Attend Phys: Pedro El MD Discharge: Date of : 30 Report #: [id number] THIS REPORT FOR: //name// CC: Pedro El DATE OF SERVICE: 04/03/2018 REASON FOR CONSULTATION: Acute kidney injury. HISTORY OF PRESENT ILLNESS: This is an 87-year-old female who we know from nearly 1 month hospitalization bridging 01/2018 and 03/2018. At that time, she came in with acute kidney injury and ended up having a sigmoid volvulus. She ended up having a sigmoid resection. She had a PEG tube placed. Remarkably, after a lengthy time with acute kidney injury and a creatinine level that got as high as 7.8, she very slowly improved over several week period of time. She ended up with a creatinine level down to 1.5 by the time of discharge. That was 3 weeks ago. She has some underlying chronic kidney disease. She went to an LTAC and then back to [facility]. Per the description of Dr. El, she began running high glucoses and had some fever and came back through the Emergency Room yesterday. Upon presentation, her BUN was 137 and creatinine level was 3.5. White count was elevated to 30.5 with a profound left shift. She was given IV fluids, admitted to the Intensive Care Unit. We are consulted today to help with her acute kidney injury. She has been placed on sepsis protocol. It looks like she has gotten about 3 liters of fluid total. She was on some IV normal saline and then was converted over to some bicarbonate containing IV fluids just this morning. She has been on some pressors. She is currently on some Levophed at 7 mcg per minute. She has had a remote cerebrovascular accident and is poorly responsive, so I cannot get anything else from her. The rest of this information is obtained from her recent hospitalization as well as her Emergency Room presentation and records from overnight. Additional renal history is that of some underlying chronic kidney disease. She has a history of hypertension as well as some diabetes and some peripheral vascular disease all contributing to her chronic kidney disease. Again, her baseline creatinine got down to about 1.5 at the end of her recent hospitalization. PAST MEDICAL HISTORY: Hypertension, diabetes, CVA, her lengthy hospitalization as noted above. She has had previous peripheral wounds, old hysterectomy, appendectomy. Prior stent placements to lower extremities. MEDICATIONS: On admission appear to include Lovenox, erythropoietin, insulin. ALLERGIES: No known medical allergies. [address] [address] CONSULTATION Name: VICKICARLYN Room #: 242-P ADM IN M.R.#: [id number] Admission: 04/02/18 Attend Phys: Pedro El MD Discharge: Date of : 30 Report #: [id number] FAMILY HISTORY: Noncontributory. SOCIAL HISTORY: The patient is a . She lives at [facility]. She has been a long-term resident since her prior CVA. REVIEW OF SYSTEMS: Unobtainable. PHYSICAL EXAMINATION: GENERAL: Chronically ill-appearing elderly female. She is seen without much responsiveness. VITAL SIGNS: Blood pressure 97/53, heart rate 102, temperature 97.1, oxygen saturation 97%, respiratory rate 32. HEENT: Eyes are open. Oral mucosa is dry. NECK: Supple, without adenopathy. CHEST: Show shallow respirations bilaterally. HEART: Has a regular tachycardia with somewhat distant heart tones. ABDOMEN: Very mildly distended. PEG tube remains in place. She has one mcmullen of fairly high pitched bowel sounds. She is mildly tympanitic, but not severely so. No guarding or rebound. EXTREMITIES: Show decreased skin turgor of the lower extremities. She has diffuse marked muscle atrophy. IMAGING: Chest x-ray shows no catracho infiltrates. LABORATORY DATA: From admission, sodium 141, potassium 3.4, chloride 105, bicarbonate 21, BUN 137, creatinine 3.8, glucose 518, down to 236; creatinine is down to 3.5, bicarbonate dropped to 13. Calcium 8.0, AST 43, ALT 40, total protein 5.0, albumin 1.1. White count 30.5, hemoglobin 11.2, hematocrit 34.9, platelets 210,000. Differential on the white count is 62 neutrophils, 22 bands, 9 lymphocytes, 7 monocytes. Urinalysis: Specific gravity greater than 1.030, pH 5.0, 6-15 white cells, 3-10 red cells. Blood gas on admission, pH 7.40, pCO2 of 25.8, pO2 of 90.6. Lactate 3.55, up to 4.71. ASSESSMENT: 1. Sepsis syndrome. She has leukocytosis and hypotension. Source is difficult to tell at this time. She certainly has some pyuria, but I am not certain that this is a catracho urinary tract infection related sepsis. She had a recent sigmoid volvulus with sigmoidectomy. Abdomen is a little distended, although she has some high pitched bowel sounds present. I am certainly concerned about potential intra-abdominal source. Lung status is always a concern with potential aspiration, although chest x-ray did not show catracho infiltrate. I do not see evidence of peripheral wounds. She has been started on broad spectrum antibiotics. Blood pressure is still low and we will talk more about that below. We will await cultures. 2. Hypotension. She still is volume deplete on exam in spite of the volume [facility] [address] [place] [address] CONSULTATION Name: CARLYN COHEN Lesli Room #: 242-P ADM IN ..#: [id number] Admission: 04/02/18 Attend Phys: Pedro El MD Discharge: Date of : 30 Report #: [id number] that she has gotten. We will give another normal saline bolus over a couple of hours and I will increase her sodium bicarbonate infusion in addition. 3. Acute kidney injury related to volume depletion and the sepsis syndrome once again. She had just recovered from an episode of acute kidney injury and that took several weeks to improve. We will get her on some fluid additionally and try to get this turned around more promptly. 4. Chronic kidney disease stage 3 related to hypertension and diabetes. 5. Metabolic acidosis. This will improve with improved blood pressure and control of her sepsis. In the meantime, we will get her on a bit of bicarbonate to help with that. 6. Hypotension. Again, she needs more volume. We will run a liter of saline in over the next couple of hours, increase her sodium bicarbonate infusion rate from 50 to 150 mL per minute and continue her pressors until her blood pressure improves. 7. Recent sigmoid resection. 8. Dependence on tube feeding. Once we are convinced her abdomen is better, we will get her back on that. 9. Hypothyroidism, on replacement. 10. Remote cerebrovascular accident. PLAN: 1. I will give another liter of normal saline over the next couple of hours. 2. Increase sodium bicarbonate infusion rate to 150 mL per hour. 3. Recheck labs here in a short while to see if she is continuing to trend in the proper direction. 4. We will continue to follow along in the care of this critically ill patient. <ELECTRONICALLY SIGNED> By: Ten Arellano MD 04/04/18 0950 1147 1243 Ten Arellano MD /nt
[2018-04-04 14:15] LABS: BE(vivo) -9.4 mmol/L (-2 to +3); HCO3 11.1 mmol/L (22.0-26.0); PO2 240.9 mmHg (80.0-100.0); pH 7.461 (7.360-7.450); sO2 99.6 % (92.0-98.0)
[2018-04-04 17:12] LABS: HEMOGLOBIN 9.4 gm/dL (12.0-15.0)
[2018-04-04 17:14] LABS: HEMATOCRIT 29.6 % (37.0-47.0)
--- NOTE | 2018-04-04 19:59 | NUR ---
PATIENT IS UNRESPONSIVE. SINUS ARRHYTHMIA ON CERTIFIED PARALEGAL. IV BLOOD PRESSURE SUPPORT. ON VENTILATOR (FIO2 60%, TV 500, R 16, PEEP 5), COURSE, SUCTIONING THIN SECRETIONS. PEG TUBE TO LOW INTERMITTENT SUCTIONING. ARGUETA LITTLE OUTPUT. RIGHT JUGULAR CENTRAL LINE INTACT. BLOOD SUGAR MONITORED. FAMILY UPDATED ON THE PLAN OF CARE. NO SIGNS OF ACUTE DISTRESS NOTED AT THIS TIME. WILL CONTINUE TO MONITOR.
--- NOTE | 2018-04-04 20:40 | NUR ---
COMFORT CARE: Pt continues to decline; family decided to go to comfort care. Drs. El, Abbe, and Eileen notified; orders for comfort care and extubation received. Pt given Morphine 4 mg IVP prior to withdrawl of ventilator and vasopressors and Bicarb gtt. Pt extubated at 2029; family at bedside now.
--- NOTE | 2018-04-04 21:30 | NUR ---
ASSUMED CARE OF PT AT 1900. PT UNRESPONSIVE AND AT MAX DOSE ON THREE PRESSORS. SHORTLY AFTER 1999, FAMILY DECIDED TO GO COMFORT CARE. DR. NEWBERRY, DR. JUNIOR, AND DR. GANT NOTIFIED. PT EXTUBATED AT 2029 AND PRESSORS STOPPED. PT GIVEN MORPHINE BEFORE EXTUBATION FOR COMFORT. PT AT 2116. FAMILY AT BEDSIDE.
--- NOTE | 2018-04-04 21:42 | NUR ---
Patient at 2116 with family at bedside
--- NOTE | 2018-04-04 23:23 | HC ---
[facility] [place] [address] [address] CONSULTATION Name: CARLYN LINDA Room #: 242-P ADM IN M.R.#: [id number] Admission: 04/02/18 Attend Phys: Pedro El MD Discharge: Date of : 30 Report #: [id number] THIS REPORT FOR: //name// CC: Pedro Vidal MD DATE OF SERVICE: 04/03/2018 CONSULTATION: Infectious Diseases. HISTORY OF PRESENT ILLNESS: Carlyn Linda is an 87-year-old female who returns to the hospital after a prolonged complicated hospitalization from 02/16 until 03/20. At that time, the patient required an urgent laparoscopic-assisted sigmoidectomy for volvulus. Postoperative complications included pneumonia, sepsis, renal failure, debilitation. The patient was discharged to rehab and then to a group home. At her group home, the patient was noted to have decreased mental status and elevated glucose. She also was noted to have elevated temperature. She returned to the ER and was found to be in septic shock. Infectious Disease consultation was requested. PAST MEDICAL HISTORY: The patient has a history of hypertension, diabetes, stroke with left-sided weakness and aphasia, depression. PAST SURGICAL HISTORY: Includes hysterectomy, colectomy, appendectomy and angioplasty for coronary artery disease. ALLERGIES: The patient has no known drug allergies. SOCIAL HISTORY: The patient is a long-term group home resident because of her stroke. No active use of tobacco nor alcohol. REVIEW OF SYSTEMS: Unavailable as the patient is minimally responsive. PHYSICAL EXAMINATION: GENERAL: The patient appears chronically ill, debilitated, thin, but comfortable, not in distress. VITAL SIGNS: Temperature 99.4, blood pressure is 106/39 on high dose pressors. SKIN: Shows no rash, no lesions. Surgical wounds are well healed. ENT: Shows some temporal wasting. The patient is not really responsive verbally or nonverbally. NECK: Supple. CARDIOVASCULAR: Heart sounds S1, S2, rapid rate, regular rhythm. LUNGS: Clear to anterior auscultation. [facility] [address] [place] [address] CONSULTATION Name: CARLYN LINDA Lesli Room #: 242-P [facility] IN M.R.#: [id number] Admission: 04/02/18 Attend Phys: Pedro El MD Discharge: Date of : 30 Report #: [id number] ABDOMEN: The belly is soft, but distended. It is difficult to appreciate tenderness, but I think there is some discomfort with deep palpation. Bowel sounds are present. The patient did have diarrhea. EXTREMITIES: Thin, but otherwise unremarkable. LABORATORY DATA: White count in the ER was 30,000 yesterday, today is up to 49,000 with 41% bands, hemoglobin 12, hemoglobin 40%, platelet 230,000. Electrolytes: Sodium 143, potassium 4.6, chloride 114, bicarbonate has gone from 21-14 in spite of fluids and bicarbonate support. The patient was in renal failure during her previous hospitalization, but this improved to a creatinine of 1.6. She comes into the ER now with creatinine 3.6, not much improved with hydration. BUN of 137. Glucose was 518 in the ER, is at 273. Microbiology laboratory reports 2 blood cultures were drawn and are negative at 24 hours. Urine and sputum culture are still pending. Radiology Department reports the KUB was unremarkable. Chest x-ray shows some atelectasis. A swab for MRSA of the naris was positive. IMPRESSION: Postoperative sepsis. At this time, there is a little evidence to suggest pneumonia, urinary tract infection, wound infection. I would be very concerned about an intra-abdominal process after surgery. This could represent an abdominal catastrophe or possibly just some ischemia or even Clostridium difficile disease. We will treat the patient now with vancomycin plus Zosyn, dose for her renal insufficiency. I want to check a vancomycin level after the first dose tomorrow morning to make sure that we are therapeutic particularly with the methicillin resistant Staphylococcus aureus positive naris. The patient will need isolation for this. We will do chest x-ray, 2 views abdomen, CBC and BMP tomorrow. I will put a consultation to Dr. Vidal for a surgical followup. I appreciate the opportunity of input in the care of the patient. Her prognosis must be considered very guarded. If she does have an abdominal catastrophe, I am not sure if she would be able to tolerate a significant surgical procedure particularly in light of how difficult the laparoscopic sigmoidectomy was; however, we will continue evaluation and intensive antibiotic therapy. Dr. Campoverde will return on Thursday for additional followup. <ELECTRONICALLY SIGNED> By: Donnell Mae MD 04/04/18 [id number] Donnell Mae MD /nt
--- NOTE | 2018-04-05 08:35 | EKG ---
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1930 Requested By: Kit Johnson Order Number: [id number] MD: Vern Spencer Measurements Intervals [place] Rate: 94 P: [place]: QRS: 72 QRSD: 116 T: 266 QT: 365 QTc: 457 Interpretive Statements Atrial fibrillation Left bundle branch block Baseline wander in lead(s) II,III,aVF Compared to ECG 04/02/2018 15:37:15 atrial fibrillation has replaced sinus rhythm Left bundle-branch block is now present Electronically Signed On 04-05-2018 8:35:10 [employer]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
== END 2018-04-04 21:17 | DRG 871 ==
LOC: ER 15:39 → EROBS 16:47 → ICU 16:47
PROVIDERS: Emergency Medicine; Hospitalist; Internal Medicine Pulmonary Disease; ADMIT Internal Medicine
DX: A41.9 Sepsis, unspecified organism (principal); R65.21 Severe sepsis with septic shock; J96.01 Acute respiratory failure with hypoxia; N17.0 Acute kidney failure with tubular necrosis; G92 Toxic encephalopathy; N39.0 Urinary tract infection, site not specified; K92.2 Gastrointestinal hemorrhage, unspecified; K56.7 Ileus, unspecified; I69.354 Hemiplegia and hemiparesis following cerebral infarction affecting left non-dominant side; I46.9 Cardiac arrest, cause unspecified; I10 Essential (primary) hypertension; F32.9 Major depressive disorder, single episode, unspecified; E11.22 Type 2 diabetes mellitus with diabetic chronic kidney disease; N18.3 Chronic kidney disease, stage 3 (moderate); E11.51 Type 2 diabetes mellitus with diabetic peripheral angiopathy without gangrene; E88.09 Other disorders of plasma-protein metabolism, not elsewhere classified; E11.65 Type 2 diabetes mellitus with hyperglycemia; E87.6 Hypokalemia; I95.9 Hypotension, unspecified; D64.9 Anemia, unspecified; R14.0 Abdominal distension (gaseous); I48.91 Unspecified atrial fibrillation; E86.9 Volume depletion, unspecified; E03.9 Hypothyroidism, unspecified; I25.10 Atherosclerotic heart disease of native coronary artery without angina pectoris; E86.0 Dehydration; R13.14 Dysphagia, pharyngoesophageal phase; I69.320 Aphasia following cerebral infarction; Z90.49 Acquired absence of other specified parts of digestive tract; Z90.710 Acquired absence of both cervix and uterus; Z95.820 Peripheral vascular angioplasty status with implants and grafts; Z80.42 Family history of malignant neoplasm of prostate
CPT/HCPCS: 10203